=== PATIENT | male | born 1955 | race Caucasian/White ===

== ENCOUNTER 2017-12-21 18:43 | Inpatient (IN) | payer MEDICARE ==
[2017-12-21 19:17] LABS: #Eosinphils 0.1 thou/uL (0.0-0.7); #Lymphocytes 0.5 thou/uL (1.20-3.40); #Monocytes 0.6 thou/uL (0.11-0.59); #Neutrophils 6.9 thou/uL (1.40-6.50); %Eosinophils 0.9 % (0.0-10.0); %Lymphocytes 5.7 % (21.0-51.0); %Monocytes 7.4 % (0.0-10.0); Hemoglobin 10.2 g/dL (14.0-18.0); Mean Corpuscular HGB CONC 32.5 g/dL (32.0-36.0); Mean Corpuscular Hemoglobin 31.9 pg (27.0-31.0); Mean Corpuscular Volume 98.1 fl (80.0-94.0); Mean Platelet Volume 5.9 fL (7.4-10.4); Platelet Count 244 thou/uL (130-400); RBC Distribution Width 12.7 % (11.5-14.5); Red Blood Cell (RBC) Count 3.21 mill/uL (4.70-6.10)
[2017-12-21 19:43] LABS: ALT (SGPT) 9 U/L (8-55); AST (SGOT) 12 U/L (5-34); Albumin 3.8 g/dL (3.4-4.8); Alkaline Phosphatase 147 U/L (40-150); Anion Gap 13 mmol/L (10-20); BUN (Urea Nitrogen) 17 mg/dL (8.4-25.7); Bilirubin, Total 0.7 mg/dL (0.2-1.2); Calc. Creatinine Clearance 0 mL/min (70-130); Calcium 10.2 mg/dL (7.8-10.44); Carbon Dioxide 27 mmol/L (23-31); Chloride 101 mmol/L (98-107); Estimated GFR-MDRD 16; Globulin 3.9 g/dL (2.4-3.5); Glucose 88 mg/dL (80-115); Potassium 3.5 mmol/L (3.5-5.1); Protein, Total 7.7 g/dL (5.8-8.1); Sodium 137 mmol/L (136-145)
--- NOTE | 2017-12-21 19:48 | RAD ---
PORTABLE CHEST: 12/21/17 HISTORY: Fever. No comparison. There are patchy areas of confluent infiltrate throughout the left lung and there is opacification of the left lung base obscuring the hemidiaphragm. There is opacification of the left apex. The right lung appears aerated and clear. No vascular conges tion or effusion on the right. Heart is enlarged with postop sternotomy change. Radiopaque stent material overlies the right innomin ate vein and right subclavian. There is also stent material in the proximal right upper extremity in the region of the axillary vein. IMPRESSION: Patchy areas of alveolar infiltrate throughout the left lung with opacification of the left lung base and opacification of the left apex. There are no comparison studies available. POS: KEILY
[2017-12-21] MEDS ORDERED: Acetaminophen 325 MG TAB PO PRN (20:33)
--- NOTE | 2017-12-21 20:42 | PDOC.FPRHP ---
- History of Present Illness Chief Complaint: increased productive cough, fever History of Present Illness: Sravan Varela is a 62 year old M with a PMH of ESRD on MWF dialysis, chronic L pleural effusion currently being worked up at OP, Atrial fibrillation s/p ablation-now resolved, CAD s/p FL and CABG in 2016 (last echo in 2017-EF of 40- 45%), HTN and HLD. He presented to the ED today due to acute onset of fever and chills starting today and an increased productive cough for the last few days. He actually had a colonoscopy performed this morning by Dr. Pena, which was normal, no complications. After the colonoscopy, he went to routine dialysis. Patient states that towards the end of dialysis, he started having some chills. He told the dialysis provider, at that time, he was afebrile. He was instructed to go to ED if he develops a fever or worsening symptoms. He went to his daughter's house after dialysis and he did in fact have continue chills, developed a fever, and progressive weakness/fatigue. He denies any chest pain, palpitations, vision changes, headache, dyspnea, abdominal pain, GI bleeding, dysuria, increased urinary frequency. He has a recent history of left sided pleural effusion for the last couple weeks that Dr. Cobos, pt's sr. vendor management associate, is a aware. Outpatient thoracentesis was performed about a week ago by Dr. Clinton. Cytology results are pending. Dr. Cobos called and states that this is suspicion for malignancy as patient has had some recent unexplained weight loss. ED Course: In the ED, blood cultures were drawn and patient was started on IV vancomycin 1 g and Levaquin 750 mg. Also given 3 mL duoneb and 500 cc NS bolus. - Allergies/Adverse Reactions Allergies Allergy/AdvReac Type Severity Reaction Status Date / Time Penicillins Allergy Verified 12/21/17 20:45 - Home Medications Medication Instructions Recorded Confirmed Type Aspirin [Aspirin Chewable Tablet] 81 mg PO DAILY 12/21/17 12/21/17 History Atorvastatin Calcium 20 mg PO DAILY 12/21/17 12/21/17 History Cholecalciferol (Vitamin D3) 2,000 unit PO DAILY 12/21/17 12/21/17 History [D3-2000] Cinacalcet HCl [Sensipar] 30 mg PO DAILY 12/21/17 12/21/17 History Folic Acid/Multivit,Iron,Parker 1 tablet PO DAILY 12/21/17 12/21/17 History [Nutricap Caplet] Lisinopril 2.5 mg PO DAILY 12/21/17 12/21/17 History Metoprolol Succinate [Toprol XL] 50 mg PO DAILY 12/21/17 12/21/17 History [place]-3 Fatty Acids/Fish Oil [Fish 1 cap PO DAILY 12/21/17 12/21/17 History Oil 1,000 mg Capsule] Sevelamer Carbonate [Renvela] 3,200 mg PO TID-WM 12/21/17 12/21/17 History - History PMHx: 1) CAD s/p FL and CABG in 2016, 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 Cobos is sr. vendor management associate 3) A fib s/p ablation-now resolved, Dr. Cosme 4) HTN 5) HLD 6) Recent hx of left pleural effusion PSHx: 1) CABG X4 in 2015 2) Cardiac ablation FHx: DM, HTN, CAD in several family members Social: Patient endorses smokeless tobacco use (1 can every 3 days) Denies alcohol or drug use - Review of Systems General: reports: fever/chills, fatigue. denies: weight/appetite/sleep changes , night sweats Eyes: denies: eye pain, vision changes ENT: denies: nasal congestion, rhinorrhea Respiratory: reports: cough, shortness of breath, exercise intolerance. denies : congestion Cardiovascular: denies: chest pain, palpitation, edema, paroxysmal nocturnal dyspnea, orthopnea Gastrointestinal: reports: diarrhea (chronic). denies: nausea, vomiting, constipation, abdominal pain Genitourinary: denies: incontinence, dysuria, polyuria, discharge Skin: denies: rashes, lesions, jaundice, itching, other Musculoskeletal: denies: pain, tenderness, stiffness, swelling, arthritis/ arthralgias Neurological: denies: numbness, syncope, seizure, weakness Psychological: denies: anxiety, depression - Vital signs BP: 133/68 HR: 103 RR: 24 Tmax: 103.1 Pox: 89% on RA Wt: 63 kg - Physical Exam Constitutional: NAD, awake, alert and oriented, well developed HEENT: normocephalic and atraumatic, PERRLA, EOMI, conjunctiva clear, no scleral icterus, grossly normal vision, TM's clear and intact, grossly normal hearing, normal nasal mucosa, MMM, oropharynx clear Neck: supple, FROM, trachea midline, no LAD, no JVD Chest: no-tender to palpation, no lesions Heart: RRR, normal S1/S2, pulses present, no edema -Heart: 2/6 systolic murmur Lungs: good air movement -Lungs: b/l L>R rales and expiratory wheezes Abdomen: soft, bowel sounds present, no masses/distention -Abdomen: mild suprapubic TTP, no guarding, rigidity, rebound Musculoskeletal: normal structure, normal tone, ROM grossly normal Neurological: no focal deficit, CN II-XII intact, normal sensation Skin: no rash/lesions, good turgor, capillary refill <2 seconds Heme/Lymphatic: no unusual bruising or bleeding, no purpura, no petechia Psychiatric: normal mood and affect, good judgment and insight, intact recent and remote memory FMR H&P: Results - Labs Result Diagrams: 12/21/17 19:10 12/21/17 19:10 Lab results: WBC 8.0 thou/uL (4.8-10.8) 12/21/17 19:10 Hgb 10.2 g/dL (14.0-18.0) L 12/21/17 19:10 Hct 31.4 % (42.0-52.0) L 12/21/17 19:10 MCV 98.1 fl (80.0-94.0) H 12/21/17 19:10 Plt Count 244 thou/uL (130-400) 12/21/17 19:10 Neutrophils % 86.0 % (42.0-75.0) H 12/21/17 19:10 Sodium 137 mmol/L (136-145) 12/21/17 19:10 Potassium 3.5 mmol/L (3.5-5.1) 12/21/17 19:10 Chloride 101 mmol/L (98-107) 12/21/17 19:10 Carbon Dioxide 27 mmol/L (23-31) 12/21/17 19:10 BUN 17 mg/dL (8.4-25.7) 12/21/17 19:10 Creatinine 3.81 mg/dL (0.6-1.3) H 12/21/17 19:10 Glucose 88 mg/dL (80-115) 12/21/17 19:10 Lactic Acid 0.9 mmol/L (0.5-2.2) 12/21/17 19:10 Calcium 10.2 mg/dL (7.8-10.44) 12/21/17 19:10 Total Bilirubin 0.7 mg/dL (0.2-1.2) 12/21/17 19:10 AST 12 U/L (5-34) 12/21/17 19:10 ALT 9 U/L (8-55) 12/21/17 19:10 Alkaline Phosphatase 147 U/L (40-150) 12/21/17 19:10 Serum Total Protein 7.7 g/dL (5.8-8.1) 12/21/17 19:10 Albumin 3.8 g/dL (3.4-4.8) 12/21/17 19:10 - EKG Interpretation EKG: NSR with RBBB, no ST changes - Radiology Interpretation Chest x-ray Status: image reviewed by me, report reviewed by me (left sides patchy infiltrates in left upper and lower lobe) FMR H&P: A/P - Problem List (1) Sepsis due to pneumonia Current Visit: Yes Status: Acute Code(s): J18.9 - PNEUMONIA, UNSPECIFIED ORGANISM; A41.9 - SEPSIS, UNSPECIFIED ORGANISM (2) Acute respiratory failure with hypoxia Current Visit: Yes Status: Acute Code(s): J96.01 - ACUTE RESPIRATORY FAILURE WITH HYPOXIA (3) Community acquired pneumonia Current Visit: Yes Status: Acute Code(s): J18.9 - PNEUMONIA, UNSPECIFIED ORGANISM (4) ESRD (end stage renal disease) on dialysis Current Visit: Yes Status: Chronic Code(s): N18.6 - END STAGE RENAL DISEASE ; Z99.2 - DEPENDENCE ON RENAL DIALYSIS (5) CAD (coronary artery disease) Current Visit: Yes Status: Chronic Code(s): I25.10 - ATHSCL HEART DISEASE OF [place] CORONARY ARTERY W/O ANG PCTRS (6) HTN (hypertension) Current Visit: Yes Status: Chronic Code(s): I10 - ESSENTIAL (PRIMARY) HYPERTENSION (7) HLD (hyperlipidemia) Current Visit: Yes Status: Chronic Code(s): E78.5 - HYPERLIPIDEMIA, UNSPECIFIED (8) Hx of atrial fibrillation, no current medication Current Visit: Yes Status: Resolved Code(s): Z86.79 - PERSONAL HISTORY OF OTHER DISEASES OF THE CIRCULATORY SYSTEM (9) Hx of pleural effusion Current Visit: Yes Status: Acute Code(s): Z87.09 - PERSONAL HISTORY OF OTHER DISEASES OF THE RESPIRATORY SYSTEM - Plan (1) Sepsis 2/2 Community Acquired Pneumonia - Admit to Tele for continuous cardiac monitoring - Initial presentation with fever 103.1 and increased productive cough with patchy left sided infiltrate on CXR - Fever started after dialysis this morning - Blood cultures drawn this morning - Continue Abx therapy with IV vancomycin with renal dosing and levaquin - Check procalcitonin, Ur Legionella/Strep Ag - Duonebs and supplemental O2 - Gentle IVFs, LR at 85 ml/hr - monitor vitals (2) Acute hypoxic respiratory failure - Sats of 89% on RA in ED - Started on supplemental O2, sats of 93-94% on 2L - Likely 2/2 #1 - management as above (3) CAP - As above (4) Hx of left sided pleural effusion - s/p thoracentesis about a week ago - cytology pending - Will request records from Dr. Clinton (5) ESRD on MWF HD - Dr. Franco Cobos consulted, appreciate recs - Continue HD - Monitor - Continue home medications - Renally dose medications (4) A fib s/p ablation-resolved - monitor on tele - continue home metoprolol (5) CAD s/p CABG over a year ago - EKG showed no ST changes - Denies any active or recent chest pain - Continue asa and statin (6) HTN - Monitor on Tele - BP stable in ED - Continue home metoprolol and lisinopril (7) HLD - Continue home statin VTE PPx: Lovenox, SCDs Diet: HH, Renal, Consult Aviation Safety Equipment Technician Activity: Ad kat, fall precautions CODE STATUS: FULL CODE FMR H&P: Upper Level - Pertinent history 62 yo CM with pmhx of ESRD on MWF dialysis (last HD today), CAD s/p FL and CABG in 2016, HFrEF (2017 echo- EF 40-45%), Afib s/p ablation, HTN, HLD and a chronic Lt pleural effusion currently being worked up as an outpt presents with acute onset of fever and chills after HD today. He also endorses a productive cough and increased SOB and weakness for the last few days. For his pleural effusion work up, Dr. Clinton performed dx thoracentesis last week and cytology is pending. There is suspicion of malignancy per pts sr. vendor management associate, Dr. Cobos, who has been consulted for pts HD mgmt. Additionally, pt had EGD & colonoscopy this morning by Dr. Linares, which was normal, and and was without complications. In ED, pt was noted to be febrile to 103.1 and hypoxic to 89% on RA. hx sig for chewing tobacco, non smoker. Specifically denies any cp, palpitations , abd pain, n/v/d. - Pertinent findings Significant Laboratory Tests 12/21/17 12/21/17 12/21/17 19:10 19:10 19:10 WBC 8.0 Hgb 10.2 L Hct 31.4 L Plt Count 244 Neutrophils % 86.0 H Creatinine 3.81 H Estimated GFR (MDRD) 16 Lactic Acid 0.9 PE- Gen- well appearing, NAD male, oriented x 2 CV- RRR, 4/6 MADDY Lungs- crackles in left lung base, decreased air movement in left lung apex Abd- soft, nontender Ext- no edema or cyanosis, +skin tenting - Plan Date/Time: 12/21/172036 62yo CM with CAD, ESRD, CHF, HTN, HLD, Afib s/p ablation, and chronic Lt pleural effusion-- 1) Sepsis secondary to presumed CAP- febrile, tachycardic, hypoxic on admission with a left shift on differential. concern for immunosuppressed state given ESRD and possible malignancy. continue Vanc + Levaquin for broad-spectrum abx coverage (PCN allergy) and pending BCx. Give additional 250ml NS for completion of 30ml/kg fluid repletion for sepsis. Check procalcitonin. If immunosuppressed , consider fungal cause vs. TB given location and h/o recent wt loss. Check quant gold. 2) Lt pleural effusion, chronic- pending cytology and work-up. check quant gold , request records from [facility] regarding diagnostic thoracentesis results. 3) new systolic murmur- not previously documented. check echo. if no clear pneumonia based on the above, consider endocarditis as possible source of fever- - especially in light of h/o afib, now off coumadin. 4) ESRD on HD- continue HD mwf per Dr. Cobos, who has been consulted on the case. 5) CAD s/p 4v CABG- med rec for optimal medical mgmt 6) Afib s/p ablation- appears to have been sinus tach upon arrival. previously on coumadin- has since stopped. monitor on tele and complete fluid repletion for sepsis. 7) HFrEF (40-45%)- last echo 18 mo prior, repeat during this hospitalization, especially in light of possible new onset murmur 8) HTN- home rx 9) HLD- home statin 10) chewing tobacco abuse- school counselor on cessation I, [Chastity Nguyen DO (PGY-3)], have evaluated this patient and agree with findings/plan as outlined by agribusiness internship resident. Pertinent changes/additions are listed here.
[2017-12-21] MEDS ORDERED: Lactated Ringer's 1,000 ML IV SCH (22:00)
[2017-12-21] MEDS ORDERED: Sodium Chloride 0.9% 250 ML IV SCH (22:15)
[2017-12-21] MEDS ORDERED: Vancomycin HCl 1 GM in Premix Bag 1 BAG IVPB PRN (22:32)
[2017-12-21] MEDS ORDERED: Vancomycin HCl 750 MG in Sodium Chloride 0.9% 250 ML 250 ML IVPB PRN (22:32)
[2017-12-21] MEDS ORDERED: Vancomycin HCl 500 MG in Sodium Chloride 0.9% 100 ML IVPB PRN (22:33)
[2017-12-21] MEDS ORDERED: Vancomycin HCl 250 MG in Sodium Chloride 0.9% 100 ML IVPB PRN (22:34)
[2017-12-21] MEDS ORDERED: HOLD VANCOMYCIN FOR LEVEL >20 FS SCH (22:45)
[2017-12-21] MEDS ORDERED: Sodium Chloride 0.9% 1,000 ML IV SCH (23:00)
[2017-12-21 23:26] LABS: INR-International Normal Ratio 1.3; PTT 40.1 SEC (22.9-36.1)
[2017-12-21] MEDS ORDERED: Tuberculin PPD 0.1 ML VIAL I-DERMAL SCH (23:30)
[2017-12-22 00:30] VITALS: BMI 21.5
[2017-12-22 05:18] LABS: #Eosinphils 0.2 thou/uL (0.0-0.7); #Lymphocytes 0.5 thou/uL (1.20-3.40); #Monocytes 0.6 thou/uL (0.11-0.59); #Neutrophils 4.5 thou/uL (1.40-6.50); %Basophils 0.5 % (0.0-1.0); %Eosinophils 2.8 % (0.0-10.0); %Lymphocytes 8.1 % (21.0-51.0); %Monocytes 11.1 % (0.0-10.0); %Neutrophils 77.5 % (42.0-75.0); Hemoglobin 9.3 g/dL (14.0-18.0); Mean Corpuscular HGB CONC 31.8 g/dL (32.0-36.0); Mean Corpuscular Hemoglobin 31.9 pg (27.0-31.0); Mean Platelet Volume 6.1 fL (7.4-10.4); Platelet Count 197 thou/uL (130-400); RBC Distribution Width 12.8 % (11.5-14.5); Red Blood Cell (RBC) Count 2.91 mill/uL (4.70-6.10); White Blood Cell (WBC) Count 5.8 thou/uL (4.8-10.8)
[2017-12-22 05:29] LABS: Anion Gap 12 mmol/L (10-20); BUN (Urea Nitrogen) 23 mg/dL (8.4-25.7); Calc. Creatinine Clearance 16 mL/min (70-130); Calcium 9.6 mg/dL (7.8-10.44); Carbon Dioxide 27 mmol/L (23-31); Chloride 104 mmol/L (98-107); Estimated GFR-MDRD 14; Glucose 72 mg/dL (80-115); Potassium 3.6 mmol/L (3.5-5.1); Sodium 139 mmol/L (136-145)
--- NOTE | 2017-12-22 06:45 | PDOC.FM ---
- Subjective Subjective: No complaints this am. Not requiring O2 this morning. VSS, afebrile. NSR this morning with few PVCs. - Objective MAR Reviewed: Yes Vital Signs & Weight: Vital Signs (12 hours) Temp Pulse Resp BP Pulse Ox 12/22/17 04:51 96.9 F L 67 20 100/76 100 12/22/17 00:30 98.5 F 68 16 103/56 L 99 12/21/17 21:30 99.8 F H 88 20 98 12/21/17 21:25 99.8 F H 88 20 112/59 L 98 Weight Weight 65.68 kg I&O: 12/20/17 12/21/17 12/22/17 06:59 06:59 06:59 Intake Total 610 Balance 610 Result Diagrams: 12/22/17 04:18 12/22/17 04:18 Radiology Reviewed by me: Yes <Tatiana Bishop - Last Filed: 12/22/17 07:51> - Objective Vital Signs & Weight: Vital Signs (12 hours) Temp Pulse Resp BP BP Pulse Ox 12/23/17 09:00 68 131/65 12/23/17 08:54 97.8 F 68 18 131/65 95 12/23/17 04:14 97.9 F 74 20 149/71 H 98 12/23/17 02:00 95 12/22/17 23:51 96.6 F L 74 20 136/70 96 Weight Weight 144 lb 12.8 oz I&O: 12/22/17 12/23/17 12/24/17 06:59 06:59 06:59 Intake Total 610 720 Output Total 30 Balance 610 690 Result Diagrams: 12/23/17 04:21 12/23/17 04:21 <Umair Payne - Last Filed: 12/23/17 09:30> Phys Exam - Physical Examination Constitutional: NAD HEENT: PERRLA, moist MMs Neck: no JVD Respiratory: no wheezing crackles left sided <Tatiana Bishop - Last Filed: 12/22/17 07:51> Dx/Plan (1) Sepsis due to pneumonia Code(s): J18.9 - PNEUMONIA, UNSPECIFIED ORGANISM; A41.9 - SEPSIS, UNSPECIFIED ORGANISM Status: Acute (2) Acute respiratory failure with hypoxia Code(s): J96.01 - ACUTE RESPIRATORY FAILURE WITH HYPOXIA Status: Resolved (3) Community acquired pneumonia Code(s): J18.9 - PNEUMONIA, UNSPECIFIED ORGANISM Status: Acute (4) Hx of pleural effusion Code(s): Z87.09 - PERSONAL HISTORY OF OTHER DISEASES OF THE RESPIRATORY SYSTEM Status: Chronic (5) CAD (coronary artery disease) Code(s): I25.10 - ATHSCL HEART DISEASE OF [place] CORONARY ARTERY W/O ANG PCTRS Status: Chronic (6) ESRD (end stage renal disease) on dialysis Code(s): N18.6 - END STAGE RENAL DISEASE; Z99.2 - DEPENDENCE ON RENAL DIALYSIS Status: Chronic (7) HLD (hyperlipidemia) Code(s): E78.5 - HYPERLIPIDEMIA, UNSPECIFIED Status: Chronic (8) HTN (hypertension) Code(s): I10 - ESSENTIAL (PRIMARY) HYPERTENSION Status: Chronic (9) Hx of atrial fibrillation, no current medication Code(s): Z86.79 - PERSONAL HISTORY OF OTHER DISEASES OF THE CIRCULATORY SYSTEM Status: Resolved - Plan Plan: (1) Sepsis 2/2 Community Acquired Pneumonia - Admit to Tele for continuous cardiac monitoring - Initial presentation with fever 103.1 and increased productive cough with patchy left sided infiltrate on CXR - Fever started after dialysis - Blood cultures drawn and are pending - Continue Abx therapy with IV vancomycin with renal dosing and levaquin - normal procalcitonin, Ur Legionella/Strep Ag pending - Duonebs and supplemental O2 - Gentle IVFs, LR at 85 ml/hr - monitor vitals (2) Acute hypoxic respiratory failure, now resolved - Sats of 89% on RA in ED - Started on supplemental O2, sats of 93-94% on 2L - Likely 2/2 #1 - management as above (3) CAP - As above (4) Hx of left sided pleural effusion - s/p thoracentesis about a week ago - cytology pending - Will request records from Dr. Clinton (5) ESRD on MWF HD - Dr. Franco Cobos consulted, appreciate recs - Continue HD - Monitor - Continue home medications - Renally dose medications (4) A fib s/p ablation-resolved - monitor on tele - continue home metoprolol (5) CAD s/p CABG over a year ago - EKG showed no ST changes - Denies any active or recent chest pain - Continue asa and statin (6) HTN - Monitor on Tele - BP stable in ED - Continue home metoprolol and lisinopril (7) HLD - Continue home statin VTE PPx: Lovenox, SCDs Diet: HH, Renal, Consult Drug Room Clerk Activity: Ad kat, fall precautions CODE STATUS: FULL CODE <Tatiana Bishop - Last Filed: 12/22/17 07:51> Attending Addendum - Attending Addendum Date/Time: 12/23/17 0930 I personally evaluated the patient and discussed the management with Dr. Dubon. I agree with the History, Examination, Assessment and Plan documented above with any addition or exceptions noted below. continue iv antibiotics. <Umair Payne - Last Filed: 12/23/17 09:30>
[2017-12-22 08:01] LABS: Bilirubin Small (Negative); Blood, Urine Negative (Negative); Clarity CLEAR (Clear); Glucose, Urine (Dipstick) Negative (Negative); Leukocyte Negative (Negative); Nitrite Negative (Negative); Protein, Urine (Dipstick) 300 mg/dL (Neg-Trace); Specific Gravity, Urine 1.011 (1.002-1.036); Urobilinogen 0.2 mg/dL (0.2-1.0)
[2017-12-22 08:04] LABS: Bacteria/HPF None Seen HPF (None Seen); Hyaline Casts/LPF 0-3 HYALINE CAST LPF (0-3 Hyaline); Squamous Epithelial 0-3 HPF (0-3); WBC/HPF 0-3 HPF (0-3)
[2017-12-22 08:05] LABS: Oval Fat Bodies/HPF None Seen HPF (None Seen); Renal Epithelial None Seen HPF (0-3); Sperm/HPF None Seen HPF (None Seen); Transitional Epithelial NONE SEEN HPF (0-3); Trichomonas/HPF None Seen HPF (None Seen); Yeast-All Forms None Seen HPF (None Seen)
[2017-12-22] MEDS ORDERED: Enoxaparin Sodium 30 MG/0.3 ML SYRINGE SC SCH ×2 (09:00)
[2017-12-22] MEDS: Lisinopril 2.5 MG TAB PO SCH (09:16)
[2017-12-22] MEDS: Sevelamer Carbonate 800 MG TAB PO SCH ×3 (09:16→17:54)
[2017-12-22] MEDS: Cinacalcet HCl 30 MG TAB PO SCH (09:16)
[2017-12-22] MEDS: Multivitamin W/ Minerals 1 TAB PO SCH (09:16)
[2017-12-22] MEDS: Atorvastatin Calcium 20 MG TAB PO SCH (09:17)
[2017-12-22] MEDS: Guaifenesin DM 100-10/5 ML UDCUP PO PRN ×3 (10:59→23:40)
[2017-12-23 05:38] LABS: #Eosinphils 0.3 thou/uL (0.0-0.7); #Lymphocytes 0.6 thou/uL (1.20-3.40); #Monocytes 0.6 thou/uL (0.11-0.59); #Neutrophils 3.8 thou/uL (1.40-6.50); %Basophils 0.4 % (0.0-1.0); %Lymphocytes 11.5 % (21.0-51.0); %Monocytes 11.4 % (0.0-10.0); %Neutrophils 70.7 % (42.0-75.0); Mean Corpuscular HGB CONC 31.1 g/dL (32.0-36.0); Mean Corpuscular Volume 99.7 fl (80.0-94.0); Mean Platelet Volume 6.2 fL (7.4-10.4); Platelet Count 230 thou/uL (130-400); RBC Distribution Width 12.8 % (11.5-14.5); Red Blood Cell (RBC) Count 3.24 mill/uL (4.70-6.10); White Blood Cell (WBC) Count 5.4 thou/uL (4.8-10.8)
[2017-12-23 05:43] LABS: Anion Gap 13 mmol/L (10-20); BUN (Urea Nitrogen) 34 mg/dL (8.4-25.7); Calc. Creatinine Clearance 12 mL/min (70-130); Calcium 10.6 mg/dL (7.8-10.44); Carbon Dioxide 25 mmol/L (23-31); Chloride 104 mmol/L (98-107); Estimated GFR-MDRD 10; Glucose 79 mg/dL (80-115); Potassium 3.8 mmol/L (3.5-5.1); Sodium 138 mmol/L (136-145)
--- NOTE | 2017-12-23 06:07 | PDOC.FM ---
- Subjective Subjective: Pt denies any complaints but per telemetry he did have a 4 beat run of VT and episodes where his HR dropped to the 40s or 50s while sleeping. He is asymptomatic this morning. - Objective MAR Reviewed: Yes Vital Signs & Weight: Vital Signs (12 hours) Temp Pulse Resp BP Pulse Ox 12/23/17 04:14 97.9 F 74 20 149/71 H 98 12/23/17 02:00 95 12/22/17 23:51 96.6 F L 74 20 136/70 96 12/22/17 19:42 97.8 F 70 20 143/65 H 95 12/22/17 19:35 97.8 F 70 20 95 Weight Weight 65.68 kg I&O: 12/21/17 12/22/17 12/23/17 06:59 06:59 06:59 Intake Total 610 720 Output Total 30 Balance 610 690 Result Diagrams: 12/23/17 04:21 12/23/17 04:21 Phys Exam - Physical Examination Constitutional: NAD HEENT: PERRLA, moist MMs Respiratory: no wheezing, no rales, clear to auscultation bilateral Cardiovascular: RRR systolice ejection murmur Gastrointestinal: soft, non-tender Musculoskeletal: no edema, pulses present Neurological: non-focal Psychiatric: normal affect, A&O x 3 Skin: no rash Dx/Plan (1) Sepsis due to pneumonia Code(s): J18.9 - PNEUMONIA, UNSPECIFIED ORGANISM; A41.9 - SEPSIS, UNSPECIFIED ORGANISM Status: Acute (2) Acute respiratory failure with hypoxia Code(s): J96.01 - ACUTE RESPIRATORY FAILURE WITH HYPOXIA Status: Resolved (3) Community acquired pneumonia Code(s): J18.9 - PNEUMONIA, UNSPECIFIED ORGANISM Status: Acute (4) Hx of pleural effusion Code(s): Z87.09 - PERSONAL HISTORY OF OTHER DISEASES OF THE RESPIRATORY SYSTEM Status: Chronic (5) CAD (coronary artery disease) Code(s): I25.10 - ATHSCL HEART DISEASE OF [place] CORONARY ARTERY W/O ANG PCTRS Status: Chronic (6) ESRD (end stage renal disease) on dialysis Code(s): N18.6 - END STAGE RENAL DISEASE; Z99.2 - DEPENDENCE ON RENAL DIALYSIS Status: Chronic (7) HLD (hyperlipidemia) Code(s): E78.5 - HYPERLIPIDEMIA, UNSPECIFIED Status: Chronic (8) HTN (hypertension) Code(s): I10 - ESSENTIAL (PRIMARY) HYPERTENSION Status: Chronic (9) Hx of atrial fibrillation, no current medication Code(s): Z86.79 - PERSONAL HISTORY OF OTHER DISEASES OF THE CIRCULATORY SYSTEM Status: Resolved (10) Nonsustained supraventricular tachycardia Code(s): I47.1 - SUPRAVENTRICULAR TACHYCARDIA Status: Acute (11) Ventricular tachycardia, non-sustained Code(s): I47.2 - VENTRICULAR TACHYCARDIA Status: Acute (12) Bradycardia Code(s): R00.1 - BRADYCARDIA, UNSPECIFIED Status: Acute - Plan Plan: Sepsis 2/2 Community Acquired Pneumonia vs endocarditis - Blood cultures drawn and show NGTD - Continue Abx therapy with levaquin - echo did not show any vegetations, will plan to dc vanc today - normal procalcitonin, Ur Legionella/Strep Ag pending - Duonebs and supplemental O2 - Gentle IVFs, LR at 85 ml/hr - monitor vitals Acute hypoxic respiratory failure, now resolved - Sats of 89% on RA in ED, now upper 90s on RA - Likely 2/2 #1 CAP - see above Nonsustained VT- -4 beats overnight while asleep, resolved -continue to monitor Nonsustained SVT -several beats yesterday morning, nonstained, resolved Bradycardia -40s-50s overnight -Currently NSR in the 60-70s -Continue to monitor Hx of left sided pleural effusion - s/p thoracentesis about a week ago - cytology pending - records from Dr. Clinton pending ESRD on MWF HD - Dr. Franco Cobos consulted, appreciate recs - Continue HD - Continue home medications A fib s/p ablation-resolved - monitor on tele - continue home metoprolol CAD s/p CABG over a year ago - Continue asa and statin HTN - Monitor on Tele - BP stable in ED - Continue home metoprolol and lisinopril HLD - Continue home statin VTE PPx: Lovenox, SCDs Diet: HH, Renal, Consult Supervisor Costuming Activity: Ad kat, fall precautions
[2017-12-23 07:52] LABS: Folate (Folic Acid) 13.4 ng/mL (7.0-31.4)
[2017-12-23 08:28] LABS: Magnesium 2.2 mg/dL (1.6-2.6); Phosphorus 2.2 mg/dL (2.3-4.7)
[2017-12-23] MEDS ORDERED: Sodium Chloride 0.9% 10 ML ONE (08:28)
[2017-12-23] MEDS: Lisinopril 2.5 MG TAB PO SCH (09:00)
[2017-12-23] MEDS: Fish Oil 1,000 MG CAP PO SCH (09:00)
[2017-12-23] MEDS: Multivitamin W/ Minerals 1 TAB PO SCH (09:00)
[2017-12-23] MEDS: Atorvastatin Calcium 20 MG TAB PO SCH (09:00)
[2017-12-23] MEDS: Sevelamer Carbonate 800 MG TAB PO SCH ×3 (09:00→17:13)
[2017-12-23] MEDS: Cinacalcet HCl 30 MG TAB PO SCH (09:00)
[2017-12-23] MEDS: Guaifenesin DM 100-10/5 ML UDCUP PO PRN (12:36)
[2017-12-23] MEDS ORDERED: READ PPD TEST SITE PO SCH (23:30)
[2017-12-24 05:15] LABS: #Basophils 0.1 thou/uL (0.0-0.2); #Eosinphils 0.3 thou/uL (0.0-0.7); #Lymphocytes 0.4 thou/uL (1.20-3.40); #Monocytes 0.5 thou/uL (0.11-0.59); #Neutrophils 4.5 thou/uL (1.40-6.50); %Eosinophils 4.4 % (0.0-10.0); %Lymphocytes 7.6 % (21.0-51.0); %Monocytes 9.1 % (0.0-10.0); %Neutrophils 76.9 % (42.0-75.0); Hemoglobin 9.5 g/dL (14.0-18.0); Mean Corpuscular HGB CONC 31.9 g/dL (32.0-36.0); Mean Platelet Volume 6.2 fL (7.4-10.4); Platelet Count 227 thou/uL (130-400); RBC Distribution Width 12.7 % (11.5-14.5); Red Blood Cell (RBC) Count 2.96 mill/uL (4.70-6.10); White Blood Cell (WBC) Count 5.8 thou/uL (4.8-10.8)
[2017-12-24 05:26] LABS: Anion Gap 12 mmol/L (10-20); BUN (Urea Nitrogen) 41 mg/dL (8.4-25.7); Calc. Creatinine Clearance 10 mL/min (70-130); Calcium 10.2 mg/dL (7.8-10.44); Carbon Dioxide 23 mmol/L (23-31); Chloride 106 mmol/L (98-107); Estimated GFR-MDRD 8; Glucose 80 mg/dL (80-115); Potassium 3.8 mmol/L (3.5-5.1); Sodium 137 mmol/L (136-145)
[2017-12-24] MEDS: Sevelamer Carbonate 800 MG TAB PO SCH ×3 (08:16→16:57)
[2017-12-24] MEDS: Atorvastatin Calcium 20 MG TAB PO SCH (08:17)
[2017-12-24] MEDS: Lisinopril 2.5 MG TAB PO SCH (08:17)
[2017-12-24] MEDS: Fish Oil 1,000 MG CAP PO SCH (08:17)
[2017-12-24] MEDS: Multivitamin W/ Minerals 1 TAB PO SCH (08:18)
[2017-12-24] MEDS: Cinacalcet HCl 30 MG TAB PO SCH (08:18)
[2017-12-24] MEDS: Guaifenesin DM 100-10/5 ML UDCUP PO PRN ×2 (08:18→16:57)
--- NOTE | 2017-12-24 09:05 | PDOC.FM ---
- Subjective Subjective: No acute events overnight. SR on tele in the 70s. No complaints this morning. - Objective MAR Reviewed: Yes Vital Signs & Weight: Vital Signs (12 hours) Temp Pulse Resp BP Pulse Ox 12/24/17 08:17 67 12/24/17 08:15 97.3 F L 68 20 119/58 L 95 12/24/17 05:42 96 12/24/17 04:00 96.2 F L 67 18 126/58 L 96 12/24/17 00:00 96.1 F L 61 16 126/59 L 99 Weight Weight 65.272 kg I&O: 12/23/17 12/24/17 12/25/17 06:59 06:59 06:59 Intake Total 720 1300 Output Total 30 0 Balance 690 1300 Result Diagrams: 12/24/17 04:15 12/24/17 04:15 <Tatiana Bishop - Last Filed: 12/24/17 09:06> - Objective Vital Signs & Weight: Vital Signs (12 hours) Temp Pulse Pulse Pulse Resp BP BP 12/24/17 16:58 52 L 67 128/60 126/79 12/24/17 15:40 98.3 F 61 16 12/24/17 14:10 98.0 F 62 22 H 12/24/17 08:17 67 12/24/17 08:15 97.3 F L 68 20 BP Pulse Ox 12/24/17 16:58 12/24/17 15:40 110/55 L 97 12/24/17 14:10 130/62 97 12/24/17 08:17 12/24/17 08:15 119/58 L 95 Weight Weight 65.272 kg I&O: 12/23/17 12/24/17 12/25/17 06:59 06:59 06:59 Intake Total 720 1300 840 Output Total 30 0 2300 Balance 690 1300 -1460 Result Diagrams: 12/24/17 04:15 12/24/17 04:15 <Sofi King - Last Filed: 12/24/17 19:19> Phys Exam - Physical Examination Constitutional: NAD HEENT: PERRLA, moist MMs Respiratory: no wheezing, no rales, clear to auscultation bilateral Cardiovascular: RRR, no significant murmur Gastrointestinal: soft, non-tender, no distention Musculoskeletal: no edema Neurological: non-focal Psychiatric: normal affect, A&O x 3 Skin: no rash, normal turgor <Tatiana Bishop - Last Filed: 12/24/17 09:06> Dx/Plan (1) Sepsis due to pneumonia Code(s): J18.9 - PNEUMONIA, UNSPECIFIED ORGANISM; A41.9 - SEPSIS, UNSPECIFIED ORGANISM Status: Acute (2) Acute respiratory failure with hypoxia Code(s): J96.01 - ACUTE RESPIRATORY FAILURE WITH HYPOXIA Status: Resolved (3) Community acquired pneumonia Code(s): J18.9 - PNEUMONIA, UNSPECIFIED ORGANISM Status: Acute (4) Hx of pleural effusion Code(s): Z87.09 - PERSONAL HISTORY OF OTHER DISEASES OF THE RESPIRATORY SYSTEM Status: Chronic (5) CAD (coronary artery disease) Code(s): I25.10 - ATHSCL HEART DISEASE OF [place] CORONARY ARTERY W/O ANG PCTRS Status: Chronic (6) ESRD (end stage renal disease) on dialysis Code(s): N18.6 - END STAGE RENAL DISEASE; Z99.2 - DEPENDENCE ON RENAL DIALYSIS Status: Chronic (7) HLD (hyperlipidemia) Code(s): E78.5 - HYPERLIPIDEMIA, UNSPECIFIED Status: Chronic (8) HTN (hypertension) Code(s): I10 - ESSENTIAL (PRIMARY) HYPERTENSION Status: Chronic (9) Hx of atrial fibrillation, no current medication Code(s): Z86.79 - PERSONAL HISTORY OF OTHER DISEASES OF THE CIRCULATORY SYSTEM Status: Resolved (10) Nonsustained supraventricular tachycardia Code(s): I47.1 - SUPRAVENTRICULAR TACHYCARDIA Status: Acute (11) Ventricular tachycardia, non-sustained Code(s): I47.2 - VENTRICULAR TACHYCARDIA Status: Acute (12) Bradycardia Code(s): R00.1 - BRADYCARDIA, UNSPECIFIED Status: Acute - Plan Plan: Sepsis 2/2 Community Acquired Pneumonia vs endocarditis - Blood cultures drawn and show NGTD - Continue Abx therapy with levaquin - echo did not show any vegetations - normal procalcitonin, Ur Legionella/Strep Ag pending - Duonebs and supplemental O2 - Gentle IVFs, LR at 85 ml/hr - monitor vitals Acute hypoxic respiratory failure, now resolved - Sats of 89% on RA in ED, now upper 90s on RA - Likely 2/2 #1 CAP - see above Nonsustained VT, resolved- -4 beats while asleep 12/23, resolved -continue to monitor Nonsustained SVT, resolved -several beats yesterday morning 2, nonstained, resolved Bradycardia -40s-50s overnight /3 -Currently NSR in the 60-70s -Continue to monitor Hx of left sided pleural effusion - s/p thoracentesis about a week ago - cytology pending - records from Dr. Clinton pending ESRD on MWF HD - Dr. Franco Cobos consulted, appreciate recs - Continue HD MWF - Continue home medications A fib s/p ablation-resolved - monitor on tele - continue home metoprolol CAD s/p CABG over a year ago - Continue asa and statin HTN - Monitor on Tele - BP stable in ED - Continue home metoprolol and lisinopril HLD - Continue home statin VTE PPx: Lovenox, SCDs Diet: HH, Renal, Consult Lien Searcher Activity: Ad kat, fall precautions Dispo: will have patient seen by PT/OT/CM for recommendations on discharge. <Tatiana Bishop - Last Filed: 12/24/17 09:06> Attending Addendum - Attending Addendum Date/Time: 12/24/171917 I personally evaluated the patient and discussed the management with Dr. Bishop. I agree with the History, Examination, Assessment and Plan documented above with any addition or exceptions noted below. The patient has had bradycardia and nonsustained vtach at different times during the hospitalization. Will consult cardiology for further evaluation. Pt will have dialysis today. Waiting on cultures and final tb results. <Sofi King - Last Filed: 12/24/17 19:19>
--- NOTE | 2017-12-24 11:33 | PQF ---
DATE: 12-24-17 ATTN: DR. NICOL ACUÑA Please exercise your independent, professional judgment in responding to the clarification form. Clinical indicators are provided on the bottom of this form for your review Please check appropriate box(s): HEART FAILURE: A. TYPE: [ X ] Systolic / HFrEF [X ] Diastolic / HFpEF [ ] Combined Systolic / Diastolic B. ACUITY [ ] Acute [ ] Acute on Chronic [ X] Chronic [ ] Other diagnosis [ ] Unable to determine In addition, please specify: Present on Admission (POA): [ ] Yes [ ] No [ ] Unable to determine For continuity of documentation, please document condition throughout progress notes and discharge summary. Thank You. CLINICAL INDICATORS - SIGNS / SYMPTOMS / LABS H&P: 62 YO CM WITH CAD, ESRD, CHF, HTN, HLD, A FIB S/P ABLATION AND CHRONIC LT PLEURAL EFFUSION H&P: HFrEF (40-45%)-LAST ECHO 18 MO PRIOR, REPEAT DURING HOSPITALIZATION, ESPECIALLY IN LIGHT OF POSSIBLE NEW ONSET MURMUR BNP: 12-21-17: 3337.5 RISKS: H&P: 62 YO CM WITH CAD, ESRD, CHF, HTN, HLD, A FIB S/P ABLATION AND CHRONIC LT PLEURAL EFFUSION TREATMENTS: (MAR) METOPROLOL O2 2L USE TELEMETRY MONITORING (This form is maintained as a part of the permanent medical record) 2014 [employer]. All Rights Reserved [email or web address] Office: [phone] [facility]
[2017-12-24 13:54] LABS: Legionella Urinary Ag Negative (Negative); Strep pneumo Urine Ag NEGATIVE (NEGATIVE)
--- NOTE | 2017-12-24 15:45 | CON ---
DATE OF CONSULTATION: 12/24/2017 REASON FOR CONSULTATION: Nonsustained VT, fever chills PRIMARY DRUM DYEING MACHINE OPERATOR: Zoya Chun M.D. HISTORY OF PRESENT ILLNESS: Avery is a very pleasant 62-year-old gentleman with past medical history of end-stage renal disease in addition to CAD status post bypass surgery x2 in 2016 and in addition atrial fibrillation who recently presented with malaise, fatigue in addition to leg weakness. Pt recently underwent a colonoscopy and shortly thereafter, while on dialysis, developed F/ C. No chest pain or pressure noted. No shortness of breath or associated symptoms. He had an episode of 9 beats of nonsustained VT while asleep. His LVEF on recent echo was estimated at 50%-55%. He did have moderate to severe tricuspid regurgitation. He denies syncope, presyncope or other associated symptoms. Cardiac history, cath dated 02/14/2016, previous stent placement to the right coronary artery with no significant disease. There is 90% mid PDA disease, 75%- 90% stenosis of the proximal portion of the circumflex artery in addition to 90 % stenosis of the mid LAD and 90% stenosis of diagonal branch. PAST MEDICAL HISTORY: Mild congestive heart failure, hypertension, mitral regurgitation, diabetes mellitus, and end-stage renal disease. PAST SURGICAL HISTORY: CABG, dialysis shunt placement and left knee surgery. ALLERGIES: PENICILLIN. HOME MEDICATIONS: Include atorvastatin, fish oil, vitamin D3, Renvela, Jantoven , vitamin, metoprolol, and lisinopril. REVIEW OF SYSTEMS: Ten point review of systems reviewed as above, otherwise negative. PHYSICAL EXAMINATION: GENERAL: Patient is a pleasant male who is in no acute distress. The patient appears his stated age. VITAL SIGNS: Blood pressure 119/58, pulse 68, temperature 97.3. NEUROLOGIC: The patient is alert and oriented times 3 with no focal neurologic deficits. HEENT: Sclerae without icterus. Mouth has moist mucous membranes with normal pallor. NECK: No JVD. Carotid upstroke brisk. No bruits bilaterally. LUNGS: Clear to auscultation with unlabored respirations. BACK: No scoliosis or kyphosis. CARDIAC: Regular rate and rhythm with normal S1 and S2. No S3 or S4 noted. No significant rubs, murmurs, thrills, or gallops noted throughout the precordium. PMI is not displaced. There is no parasternal heave. ABDOMEN: Soft, nontender, nondistended. No peritoneal signs present. No hepatosplenomegaly. No abnormal striae. EXTREMITIES: 2+ femoral and 2+ dorsalis pedis pulses. No cyanosis, clubbing, or edema. SKIN: No gross abnormalities. PERTINENT LABORATORY DATA: Hemoglobin 9.5, creatinine 6.74. BNP of 3337. IMPRESSION: 1. Nonsustained ventricular tachycardia. 2. Coronary artery disease. 3. Status post bypass surgery. 4. End-stage renal disease. 5. Pneumonia? RECOMMENDATIONS: At this point, the patient did have some nonsustained VT. He does have underlying coronary disease. He has no current symptoms suggesting angina. He has not had a recent stress study. We would recommend a noninvasive stress study to assess for any areas of ischemia. If felt to be low risk, I would continue medical therapy. This may also be atrial fibrillation with aberrancy. MTDD
--- NOTE | 2017-12-24 16:45 | PDOC.EVN ---
Event Note - Event Note Event Note: Based on recent events on tele overnight of nonsustained VT, nonsustained SVT, and bradycardia, and the recommendations of Dr. Hendricks, we will order a stress test for tomorrow am for Mr. Varela to further assess these abnormal nonstained rhythms.
[2017-12-25 05:10] LABS: #Eosinphils 0.3 thou/uL (0.0-0.7); #Lymphocytes 0.8 thou/uL (1.20-3.40); #Monocytes 0.5 thou/uL (0.11-0.59); #Neutrophils 3.8 thou/uL (1.40-6.50); %Basophils 0.5 % (0.0-1.0); %Lymphocytes 14.6 % (21.0-51.0); %Monocytes 8.7 % (0.0-10.0); %Neutrophils 71.2 % (42.0-75.0); Hemoglobin 10.5 g/dL (14.0-18.0); Mean Corpuscular HGB CONC 32.9 g/dL (32.0-36.0); Mean Corpuscular Hemoglobin 32.8 pg (27.0-31.0); Mean Corpuscular Volume 99.8 fl (80.0-94.0); Mean Platelet Volume 6.4 fL (7.4-10.4); Platelet Count 225 thou/uL (130-400); RBC Distribution Width 12.6 % (11.5-14.5); White Blood Cell (WBC) Count 5.3 thou/uL (4.8-10.8)
[2017-12-25 05:23] LABS: Anion Gap 9 mmol/L (10-20); BUN (Urea Nitrogen) 18 mg/dL (8.4-25.7); Calc. Creatinine Clearance 16 mL/min (70-130); Calcium 10.2 mg/dL (7.8-10.44); Carbon Dioxide 31 mmol/L (23-31); Chloride 102 mmol/L (98-107); Estimated GFR-MDRD 13; Glucose 77 mg/dL (80-115); Potassium 3.8 mmol/L (3.5-5.1); Sodium 138 mmol/L (136-145)
--- NOTE | 2017-12-25 07:30 | PDOC.FM ---
- Subjective Subjective: Pt was mostly NSR in the 70s overnight; he also has a LBBB. No shortness of breath or chest pain. VSS. - Objective MAR Reviewed: Yes Vital Signs & Weight: Vital Signs (12 hours) Temp Pulse Resp BP Pulse Ox 12/25/17 04:00 98.4 F 65 18 98/49 L 96 12/24/17 20:35 98.0 F 64 18 132/62 96 Weight Weight 59.2 kg I&O: 12/24/17 12/25/17 12/26/17 06:59 06:59 06:59 Intake Total 1300 1180 Output Total 0 2300 Balance 1300 -1120 Result Diagrams: 12/25/17 04:31 12/25/17 04:31 <Tatiana Bishop - Last Filed: 12/25/17 09:05> - Objective Vital Signs & Weight: Vital Signs (12 hours) Temp Pulse Pulse Pulse Resp BP BP 12/25/17 13:07 63 12/25/17 08:17 63 65 127/59 L 131/62 12/25/17 07:50 98.0 F 63 22 H 12/25/17 04:00 98.4 F 65 18 BP Pulse Ox Pulse Ox 12/25/17 13:07 12/25/17 08:17 95 12/25/17 07:50 113/58 L 96 12/25/17 04:00 98/49 L 96 Weight Weight 59.2 kg I&O: 12/24/17 12/25/17 12/26/17 06:59 06:59 06:59 Intake Total 1300 1180 Output Total 0 2300 Balance 1300 -1120 Result Diagrams: 12/25/17 04:31 12/25/17 04:31 <Sofi King - Last Filed: 12/25/17 14:30> Phys Exam - Physical Examination Constitutional: NAD HEENT: PERRLA, moist MMs Neck: no JVD, supple Respiratory: no wheezing, no rales, no rhonchi, clear to auscultation bilateral Cardiovascular: RRR, no significant murmur Gastrointestinal: soft, non-tender, no distention Musculoskeletal: no edema, pulses present Neurological: non-focal, normal sensation Psychiatric: normal affect, A&O x 3 Skin: no rash, normal turgor, cap refill <2 seconds <Tatiana Bishop - Last Filed: 12/25/17 09:05> Dx/Plan (1) Sepsis due to pneumonia Code(s): J18.9 - PNEUMONIA, UNSPECIFIED ORGANISM; A41.9 - SEPSIS, UNSPECIFIED ORGANISM Status: Acute (2) Acute respiratory failure with hypoxia Code(s): J96.01 - ACUTE RESPIRATORY FAILURE WITH HYPOXIA Status: Resolved (3) Community acquired pneumonia Code(s): J18.9 - PNEUMONIA, UNSPECIFIED ORGANISM Status: Acute (4) Hx of pleural effusion Code(s): Z87.09 - PERSONAL HISTORY OF OTHER DISEASES OF THE RESPIRATORY SYSTEM Status: Chronic (5) CAD (coronary artery disease) Code(s): I25.10 - ATHSCL HEART DISEASE OF [place] CORONARY ARTERY W/O ANG PCTRS Status: Chronic (6) ESRD (end stage renal disease) on dialysis Code(s): N18.6 - END STAGE RENAL DISEASE; Z99.2 - DEPENDENCE ON RENAL DIALYSIS Status: Chronic (7) HLD (hyperlipidemia) Code(s): E78.5 - HYPERLIPIDEMIA, UNSPECIFIED Status: Chronic (8) HTN (hypertension) Code(s): I10 - ESSENTIAL (PRIMARY) HYPERTENSION Status: Chronic (9) Hx of atrial fibrillation, no current medication Code(s): Z86.79 - PERSONAL HISTORY OF OTHER DISEASES OF THE CIRCULATORY SYSTEM Status: Resolved (10) Nonsustained supraventricular tachycardia Code(s): I47.1 - SUPRAVENTRICULAR TACHYCARDIA Status: Acute (11) Ventricular tachycardia, non-sustained Code(s): I47.2 - VENTRICULAR TACHYCARDIA Status: Acute (12) Bradycardia Code(s): R00.1 - BRADYCARDIA, UNSPECIFIED Status: Acute - Plan Plan: Sepsis 2/2 Community Acquired Pneumonia - Blood cultures drawn and show NGTD - Continue Abx therapy with levaquin, will transition to PO today - echo did not show any vegetations - normal procalcitonin, Ur Legionella/Strep Ag negative - Duonebs and supplemental O2 - will dc IV fluids; UOP adequate - monitor vitals Acute hypoxic respiratory failure, now resolved - Sats of 89% on RA in ED, now upper 90s on RA - Likely 2/2 #1 CAP - see above CAD s/p CABG over a year ago - Continue asa and statin - stress test today d/t nonsustained vtach, svt, and bradycardia on tele and >1 year since last stress Nonsustained VT, resolved- -4 beats while asleep 12/23, resolved -continue to monitor -stress test this am Nonsustained SVT, resolved -several beats yesterday morning 12/22, nonstained, resolved -stress test this am Bradycardia -40s-50s overnight 11/22 -Currently NSR in the 60-70s -Continue to monitor -stress test this am Hx of left sided pleural effusion - s/p thoracentesis about a week ago - cytology pending - records from Dr. Clinton pending ESRD on MWF HD - Dr. Franco Cobos consulted, appreciate recs - Continue HD MWF - Continue home medications - Pt received dialysis yesterday. Tolerated well. A fib s/p ablation-resolved - monitor on tele - continue home metoprolol HTN - Monitor on Tele - BP stable in ED - Continue home metoprolol and lisinopril HLD - Continue home statin VTE PPx: Lovenox, SCDs Diet: HH, Renal, Consult Fine Arts Chair Activity: Ad kat, fall precautions Dispo: if stress negative, pt can go home <Tatiana Bishop - Last Filed: 12/25/17 09:05> Attending Addendum - Attending Addendum Date/Time: 12/25/17 [id number] I personally evaluated the patient and discussed the management with Dr. Bishop. I agree with the History, Examination, Assessment and Plan documented above with any addition or exceptions noted below. The patient was seen while in stress. Results are pending. If negative, he will be discharged home. <Sofi King - Last Filed: 12/25/17 14:30>
--- NOTE | 2017-12-25 08:27 | PDOC.CTH ---
Cardiology Progress Note - Subjective No complaints todsay. No F/C noted. Ready to go home - Objective Vital Signs Temp Pulse Resp BP Pulse Ox 12/25/17 04:00 98.4 F 65 18 98/49 L 96 12/24/17 20:35 98.0 F 64 18 132/62 96 Weight 130 lb 8.218 oz 12/24/17 12/25/17 12/26/17 06:59 06:59 06:59 Intake Total 1300 1180 Output Total 0 2300 Balance 1300 -1120 - Physical Examination General/Neuro: alert & oriented x3, NAD Neck: carotid US brisk, no JVD present Lungs: CTA, unlabored respirations Heart: RRR Abdomen: no HSM, NT/ND, soft Extremities: + femoral B - Labs Result Diagrams: 12/25/17 04:31 12/25/17 04:31 - Assessment/Plan 1. NSVT 2. CAD 3. S/p CABG 4. ESRD Recommend stress today to assess for ishcmiea. Pt with CABG 2 yrs ago. EF normal. If no significant ischemia, recommend continuing BB treatment given normal EF an no symptoms of syncope, presyncope
[2017-12-25] MEDS: Sevelamer Carbonate 800 MG TAB PO SCH ×3 (13:05→16:06)
[2017-12-25] MEDS: Fish Oil 1,000 MG CAP PO SCH (13:06)
[2017-12-25] MEDS: Lisinopril 2.5 MG TAB PO SCH (13:07)
[2017-12-25] MEDS: Cinacalcet HCl 30 MG TAB PO SCH (13:07)
[2017-12-25] MEDS: Multivitamin W/ Minerals 1 TAB PO SCH (13:08)
[2017-12-25] MEDS: Atorvastatin Calcium 20 MG TAB PO SCH (13:09)
[2017-12-25] MEDS ORDERED: Regadenoson 0.4 MG/5 ML SYRINGE ONE (13:55)
--- NOTE | 2017-12-25 14:56 | NM ---
CARDIAC SPECT HISTORY: Chest pain, coronary artery disease, status post CABG, CHF, atrial fibrillation, end stage renal dise ase, hypertension, diabetes, and dyslipidemia. TECHNIQUE: A myocardial perfusion scan was performed using the single-isotope 1-day protocol with Technetium 99m sestamibi. Ten mCi were injected intravenously for the rest exam followed by 30 mCi for the stress study. Pharmacologic stress with LexiScan is monitored and interpreted by Dr. Patel. FINDINGS: A fixed defect is seen in the inferolateral wall. No reversible defects are seen. GATED SPECT LVEF: 49%. WALL MOTION EXAM: There is mild hypokinesis in the inferolateral wall. IMPRESSION: 1. No evidence of reversible ischemia. 2. Inferolateral wall scar. POS: [facility]
[2017-12-25] MEDS: Guaifenesin DM 100-10/5 ML UDCUP PO PRN (16:06)
[2017-12-25 16:17] VITALS: BP 141/63; TEMP 97.9
== END 2017-12-25 16:39 | disposition home or self-care (01) | DRG 871 ==
LOC: ERS 18:43 → 2NO 21:12
PROVIDERS: ADMIT Family Medicine; ATTEND Family Medicine
DX: A41.9 Sepsis, unspecified organism (principal); N18.6 End stage renal disease; J18.9 Pneumonia, unspecified organism; J96.01 Acute respiratory failure with hypoxia; I47.2 Ventricular tachycardia; I50.42 Chronic combined systolic (congestive) and diastolic (congestive) heart failure; I13.2 Hypertensive heart and chronic kidney disease with heart failure and with stage 5 chronic kidney disease, or end stage renal disease; I25.10 Atherosclerotic heart disease of native coronary artery without angina pectoris; Z95.1 Presence of aortocoronary bypass graft; E78.5 Hyperlipidemia, unspecified; Z99.2 Dependence on renal dialysis; I25.2 Old myocardial infarction; Z72.0 Tobacco use
CPT/HCPCS: 36415; 71045; 78452; 80048; 80053; 81001; 82274; 82607; 82746; 83605; 83735; 83880; 84100; 84145; 85025; 85610; 85730; 86480; 86580; 87040; 87899; 90935; 93005; 93017; 93306; 94640; 94760; 96361; 96365; A4216; A9500; G0257; G8978-GP-CJ; G8979-GP-CJ; G8980-GP-CJ; G8987-GO-CI; G8988-GO-CI; G8989-GO-CI; J1650; J1956; J2785; J3370; J7620

== ENCOUNTER 2018-01-24 14:18 | Outpatient (CLI) | payer MEDICARE ==
--- NOTE | 2018-01-24 15:30 | RAD ---
CHEST 2 VIEWS: Date: 01/24/18 HISTORY: Pleural effusion. COMPARISON: 12/21/17. FINDINGS: There are sternotomy wires. There is atherosclerosis of the aorta. Heart is enlarged. There are pleur al and parenchymal changes of the left lung base, which are similar to the previous examination. Stab le increased density in the left lung apex. Stable aeration of the right lung. There is no pneumothor ax. Stable vascular stents. IMPRESSION: 1. Stable cardiomegaly. 2. Persistent pleural and parenchymal changes of left hemithorax. The degree of opacification of the left hemithorax has not significantly changed. POS: [facility]
== END 2018-01-24 14:19 | disposition home or self-care (01) ==
LOC: RAD 14:18
PROVIDERS: ATTEND Thoracic Surgery (Cardiothoracic Vascular Surgery)
DX: J90 Pleural effusion, not elsewhere classified (principal); I51.7 Cardiomegaly; R91.8 Other nonspecific abnormal finding of lung field
CPT/HCPCS: 71046

== ENCOUNTER 2020-06-12 18:34 | Inpatient (IN) | payer MEDICARE, OTHER ==
[2020-06-12 20:12] LABS: #Eosinphils 0.3 thou/uL (0.0-0.7); #Lymphocytes 0.5 thou/uL (1.20-3.40); #Monocytes 0.5 thou/uL (0.11-0.59); #Neutrophils 6.2 thou/uL (1.40-6.50); %Basophils 0.4 % (0.0-1.0); %Eosinophils 3.6 % (0.0-10.0); %Lymphocytes 6.1 % (21.0-51.0); %Neutrophils 82.8 % (42.0-75.0); Hemoglobin 13.7 g/dL (14.0-18.0); Mean Corpuscular HGB CONC 34.5 g/dL (32.0-36.0); Mean Platelet Volume 7.7 fL (7.4-10.4); Platelet Count 141 thou/uL (130-400); RBC Distribution Width 14.2 % (11.5-14.5); Red Blood Cell (RBC) Count 3.91 mill/uL (4.70-6.10); White Blood Cell (WBC) Count 7.5 thou/uL (4.8-10.8)
--- NOTE | 2020-06-12 20:24 | RAD ---
Frontal radiograph chest: 06/12/2020 COMPARISON: 09/20/2018 HISTORY: Generalized weakness with nausea vomiting and diarrhea FINDINGS: There is hazy nonspecific groundglass opacity within the mid right lung zone. There is enla rgement of the cardiac silhouette. Vascular stent material is seen in the axillary and subclavian region on the right. There is atherosclerotic calcification of the aortic arch. The prominent cardiac silhouette limits assessment of the right lung base. Increased density in the right lung base is noted, stable when compared to the prior exam. IMPRESSION: New hazy groundglass opacity in the mid right lung zone. This may signify atypical infect ious pneumonitis or aspiration. Covid 19 is a possibility.
[2020-06-12 20:54] LABS: CKMB 3.3 ng/mL (0-6.6)
[2020-06-12] MEDS ORDERED: Vancomycin 1 GM/200 ML BAG ONE (21:40)
[2020-06-12] MEDS ORDERED: Cefepime 2 GM VIAL ONE (21:40)
[2020-06-12 22:03] LABS: Albumin 3.7 g/dL (3.4-4.8)
[2020-06-12 22:04] LABS: Chloride 99 mmol/L (98-107); Potassium 3.7 mmol/L (3.5-5.1); Sodium 140 mmol/L (136-145)
[2020-06-12 22:05] LABS: Calcium 10.4 mg/dL (7.8-10.44); Glucose 77 mg/dL (80-115)
[2020-06-12 22:06] LABS: Globulin 3.1 g/dL (2.4-3.5); Protein, Total 6.8 g/dL (5.8-8.1)
[2020-06-12 22:07] LABS: Anion Gap 19 mmol/L (10-20); Bilirubin, Total 0.7 mg/dL (0.2-1.2); Carbon Dioxide 26 mmol/L (23-31)
[2020-06-12 22:08] LABS: Alkaline Phosphatase 85 U/L (40-110)
[2020-06-12 22:09] LABS: Calc. Creatinine Clearance 0 mL/min (70-130); Estimated GFR-MDRD 10
[2020-06-12 22:10] LABS: BUN (Urea Nitrogen) 34 mg/dL (8.4-25.7)
[2020-06-12 22:11] LABS: ALT (SGPT) Less than 7 U/L (8-55); AST (SGOT) 15 U/L (5-34); Magnesium 2.3 mg/dL (1.6-2.6)
[2020-06-12 22:12] LABS: CK (CPK) 59 U/L (30-200); Lipase 19 U/L (8-78)
[2020-06-12 22:17] LABS: SARS-CoV-2 NAA Rapid Test Not Detected (NotDetected)
[2020-06-12 22:23] LABS: Troponin I 0.081 ng/mL (< 0.028)
[2020-06-12] MEDS ORDERED: Calcium Carbonate 500 MG ChewTAB PO PRN (23:05)
[2020-06-12] MEDS ORDERED: HYDROcodone/Acetaminophen 5/325 mg Tablet PO PRN (23:05)
[2020-06-12] MEDS ORDERED: Acetaminophen 650 MG Suppository PR PRN (23:05)
[2020-06-12] MEDS ORDERED: Acetaminophen 325 MG TAB PO PRN (23:05)
[2020-06-12] MEDS ORDERED: Guaifenesin DM 100-10/5 ML UDCUP PO PRN (23:05)
[2020-06-12] MEDS ORDERED: Ondansetron ODT 4 MG TAB PO PRN (23:05)
[2020-06-12] MEDS ORDERED: Ondansetron PF 4 MG/2 ML Vial IVP PRN (23:05)
[2020-06-13 00:40] VITALS: BMI 20.5
--- NOTE | 2020-06-13 00:48 | PDOC.HHP ---
Hospitalist HPI - History of Present Illness dyspnea History of Present Illness: Case of an 64y/o male with pmhx of htn, tobacco abuse, DMt2 on no therapy and esrd who comes to hospital due to dyspnea of 3-4 days of duration. patient refers he was on his usual state of health until 3 weeks ago when he started with cough, he states is productive of grayish sputum, these cough kept progressing until 3-4 days ago when he started with progressive dyspnea nausea vomiting and intermittent diarrhea. patient denies any fever chills does refer general malaise and anorexia. patient also denies any chest pain palpitation or diaphoresis Hospitalist ROS - Review of Systems All other systems reviewed; all pertinent +/- noted in HPI/Subj Hospitalist History - Past Surgical History Other Surgical History: fistula creation - Family History Family History: reports: diabetes mellitus, hypertension - Social History Tobacco Type: chewing tobacco Alcohol: reports: Occassional Drugs: reports: none Living Situation: With Family - Exam General Appearance: NAD, awake alert Eye: PERRL, anicteric sclera ENT: normocephalic atraumatic, no oropharyngeal lesions Neck: supple, symmetric, no JVD, no thyromegaly Heart: RRR, no gallops, no rubs, murmur present Respiratory: no wheezes, no rales, normal chest expansion, rhonchi Gastrointestinal: soft, non-tender, non-distended, normal bowel sounds Extremities: no cyanosis, no clubbing, no edema Skin: normal turgor, no lesions, no rashes Neurological: cranial nerve grossly intact, normal sensation to touch, no weakness Musculoskeletal: normal tone, normal strength, no muscle wasting Psychiatric: normal affect, normal behavior, A&O x 3 Hospitalist Results - Labs Result Diagrams: 06/12/20 18:45 06/12/20 21:24 Lab results: WBC 7.5 thou/uL (4.8-10.8) 06/12/20 18:45 Hgb 13.7 g/dL (14.0-18.0) L 06/12/20 18:45 Hct 39.8 % (42.0-52.0) L 06/12/20 18:45 MCV 102.0 fL (78.0-98.0) H 06/12/20 18:45 Plt Count 141 thou/uL (130-400) 06/12/20 18:45 Neutrophils % 82.8 % (42.0-75.0) H 06/12/20 18:45 Sodium 140 mmol/L (136-145) 06/12/20 21:24 Potassium 3.7 mmol/L (3.5-5.1) 06/12/20 21:24 Chloride 99 mmol/L (98-107) 06/12/20 21:24 Carbon Dioxide 26 mmol/L (23-31) 06/12/20 21:24 BUN 34 mg/dL (8.4-25.7) H 06/12/20 21:24 Creatinine 5.63 mg/dL (0.7-1.3) H 06/12/20 21:24 Glucose 77 mg/dL (80-115) L 06/12/20 21:24 Calcium 10.4 mg/dL (7.8-10.44) 06/12/20 21:24 Total Bilirubin 0.7 mg/dL (0.2-1.2) 06/12/20 21:24 AST 15 U/L (5-34) 06/12/20 21:24 ALT Less than 7 U/L (8-55) L 06/12/20 21:24 Alkaline Phosphatase 85 U/L (40-110) 06/12/20 21:24 Creatine Kinase 59 U/L (30-200) 06/12/20 21:24 CK-MB (CK-2) 3.3 ng/mL (0-6.6) 06/12/20 18:45 Troponin I 0.081 ng/mL (< 0.028) H 06/12/20 21:24 Serum Total Protein 6.8 g/dL (5.8-8.1) 06/12/20 21:24 Albumin 3.7 g/dL (3.4-4.8) 06/12/20 21:24 Lipase 19 U/L (8-78) 06/12/20 21:24 Hospitalist H&P A/P - Problem (1) Acute respiratory failure with hypoxia Code(s): J96.01 - ACUTE RESPIRATORY FAILURE WITH HYPOXIA Status: Resolved (2) Pneumonia due to COVID-19 virus Code(s): U07.1 - COVID-19; J12.89 - OTHER VIRAL PNEUMONIA Status: Acute (3) ESRD (end stage renal disease) on dialysis Code(s): N18.6 - END STAGE RENAL DISEASE; Z99.2 - DEPENDENCE ON RENAL DIALYSIS Status: Chronic (4) End-stage renal disease Code(s): N18.6 - END STAGE RENAL DISEASE Status: Chronic (5) HLD (hyperlipidemia) Code(s): E78.5 - HYPERLIPIDEMIA, UNSPECIFIED Status: Chronic (6) Hypertension, benign Code(s): I10 - ESSENTIAL (PRIMARY) HYPERTENSION Status: Chronic - Plan Plan: 64y/o male with the stated pmhx who present with hypoxia likely to covid 19 covdi 19 pneumonia - cxr consistent with atypical pneumonia / viral pneumonia - lymphonenia consistent with covid 19 - initial test negative - on levaquin renally adjusted - ID consulted - decadron 6mg ivd - f/u inflammation markers - f/u blood cultures - f/u flu swab hypoxic respiratory failure - 88% 02 at RA - 02 supplementation - wean as tolerated n/v - prn symptomtic tx esrd - nephrology consulted - monitor electrolites DM - hx of dm, no current tx - will monitor fasting blood sugars - bmp 77 glucouse htn - continue home meds
[2020-06-13 01:53] LABS: Troponin I 0.075 ng/mL (< 0.028)
[2020-06-13] MEDS ORDERED: Enoxaparin Sodium 30 MG/0.3 ML SYRINGE SC SCH (09:00)
[2020-06-13] MEDS ORDERED: Dexamethasone 4 mg/ml Vial SLOW IVP SCH (09:00)
[2020-06-13 12:04] LABS: Hemoglobin 11.3 g/dL (14.0-18.0); Mean Corpuscular HGB CONC 31.7 g/dL (32.0-36.0); Mean Corpuscular Hemoglobin 31.8 pg (27.0-31.0); Mean Platelet Volume 8.5 fL (7.4-10.4); Platelet Count 150 thou/uL (130-400); RBC Distribution Width 14.2 % (11.5-14.5); Red Blood Cell (RBC) Count 3.56 mill/uL (4.70-6.10)
[2020-06-13 12:13] LABS: Band 30 % (5-11); Eosinophils 2 % (0-10); Lymphocytes 4 % (21-51); MDiff Complete? YES; Neutrophil 61 % (42-75); Reactive Lymphocytes 3 % (0-10)
[2020-06-13 12:21] LABS: ALT (SGPT) Less than 7 U/L (8-55); AST (SGOT) 13 U/L (5-34); Albumin 3.5 g/dL (3.4-4.8); Alkaline Phosphatase 74 U/L (40-110); Anion Gap 18 mmol/L (10-20); BUN (Urea Nitrogen) 39 mg/dL (8.4-25.7); Bilirubin, Total 0.6 mg/dL (0.2-1.2); Calc. Creatinine Clearance 10 mL/min (70-130); Carbon Dioxide 23 mmol/L (23-31); Chloride 99 mmol/L (98-107); Estimated GFR-MDRD 9; Globulin 3.1 g/dL (2.4-3.5); Glucose 73 mg/dL (80-115); Potassium 4.1 mmol/L (3.5-5.1); Protein, Total 6.6 g/dL (5.8-8.1); Sodium 136 mmol/L (136-145)
--- NOTE | 2020-06-13 19:41 | PDOC.BPN ---
- Brief Progress Note Encounter Date: 06/13/20 Patient was admitted overnight on account of acute hypoxic respiratory failure. Covid was negative. Acute hypoxic respiratory failure Likely secondary to viral pneumoniaCovid negative Initial concerns for Covid with elevated D-dimer and ferritin. Ferritin also 7.82 above 2000 Continue antibiotics for now Supportive treatment. Pneumonia Chest x-ray shows hazy groundglass opacities in the mid right lung zone Treat as above. No leukocytosis but has 30% bands Continue levofloxacin for now End-stage renal disease Nephrology consulted. Next Hypertension Resume home medications VT prophylaxisLovenox changed to heparin CODE STATUSfull code
--- NOTE | 2020-06-13 19:53 | CON ---
DATE OF CONSULTATION: 06/13/2020 REASON FOR CONSULTATION: Pneumonia. HISTORY OF PRESENT ILLNESS: A 64-year-old, last time I saw him was in January 2018 when he presented with a history of type 2 diabetes, hypertension, end-stage renal disease on hemodialysis through an AV fistula, coronary artery disease and prior bypass graft surgery. He had bacteremia at the time and chronic pleural effusion with hemothorax with entrapment. He had decortication and had a methicillin-sensitive Staph aureus line sepsis. I did not see him since and now he came in with a 2 or 3 weeks history of cough and fever. In the emergency room, he was saturating 90% on 2 L nasal cannula O2, BP 115/90, pulse 88, breathing 15 to 20 times a minute, and he did not have a fever. The other findings included a white cell count 7.5, hemoglobin 13.7, and platelets 141 with 82% neutrophils. Sodium 140, creatinine 5.63, and calcium 10.4. CK is 59. SARS-CoV RNA PCR negative on the . Chest x-ray with bilateral areas of scattered infiltrates, ground-glass opacity right mid lung zone. Currently, Mr. Varela is lying pretty flat in bed. He is very comfortable at rest. He is on room air and is saturating 98. There is one measurement of 91, I am not sure this is accurate because all the previous ones were very high. He denies any headaches. Some blurred vision. No sore throat. No cough or dyspnea. He feels much improved. No abdominal pain. He does not have any urine output. No lower extremity symptoms. PAST MEDICAL HISTORY: End-stage renal disease, coronary artery disease, bypass graft surgery, type 2 diabetes, line sepsis due to an MSSA or methicillin sensitive Staph aureus. FAMILY HISTORY: Diabetes and hypertension. 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 Lives by himself in the area. Chews tobacco, but does not smoke. He used to smoke in the past. Occasional alcoholic beverage use. No drug use. ALLERGY HISTORY: Penicillins with rash. CURRENT MEDICATIONS: 1. Decadron. 2. Levaquin. 3. Ondansetron. PHYSICAL EXAMINATION: VITAL SIGNS: Temperature has been normal, BP 150/86, heart rate 83, and breathing 18 times a minute. GENERAL: Appears very comfortable at rest. SKIN: Shows the AV fistula in the right upper extremity. He does not have a Lorenzana catheter. No lymphadenopathy. HEENT: Ocular movements conjugate. Oral cavity with only a few remaining teeth with marked decay. Oral mucosa normal. NECK: Supple. LUNGS: Symmetric and clear breath sounds, right and left hemithorax. HEART: S1 and S2. Regular rate without murmurs. ABDOMEN: Soft, not distended or tender. No ascites. No bladder distention. EXTREMITIES: No joint inflammatory activity. No edema. Pulses 1+ in dorsalis pedis. Plantar responses are flexor. NEURO: Nonfocal. He knows his name and where he is. He has quite a bit of problems with enunciation of words and is not very easy to understand him, but he does not seem to be have been in any delusional thinking process. He is not confused. LABORATORY DATA: Latest labs; white cell count 6.0, hemoglobin 11.3, and platelets 150 with 30% bands on the 22. Microbiology, there are 2 blood cultures pending at this time. ASSESSMENT: End-stage renal disease, coronary artery disease, type 2 diabetes, two weeks history of cough, sputum production, bandemia, and abnormal chest x-ray. DISCUSSION: The overall findings argue against COVID pneumonia, his illness behaves more like a regular type of bacterial community-acquired pneumonia. He is very comfortable at rest. We will go ahead and submit a COVID or SARS-CoV-2 antibody test and repeat the PCR test. If those are negative, then I would discontinue isolation and just continue treating with antimicrobial therapy. Consider discharge planning then. Job ID: [id number] [facility]
[2020-06-13] MEDS: Heparin 5,000 UNITS/ML VIAL SC SCH (21:21)
[2020-06-13] MEDS: Atorvastatin Calcium 20 MG TAB PO SCH (21:22)
[2020-06-14] MEDS ORDERED: Heparin 10,000 UNITS/ 10 ML VIAL ONE (09:43)
[2020-06-14 10:30] LABS: SARS-CoV-2 IgG Ab Non-Reactive (NonReactive); SARS-CoV-2 IgG Index 0.01 S/CO (< 1.40)
[2020-06-14 11:37] LABS: SARS-CoV-2 MS2 Positive; SARS-CoV-2 N Gene Negative; SARS-CoV-2 S Gene Negative; SARS-CoV-2 by NAA Not Detected (NotDetected); SARS-CoV-2 orf1ab Negative
[2020-06-14] MEDS: Sevelamer Carbonate 800 MG TAB PO SCH ×2 (16:52→16:57)
[2020-06-14] MEDS: Heparin 5,000 UNITS/ML VIAL SC SCH ×2 (16:52→21:36)
[2020-06-14] MEDS: Cinacalcet HCl 30 MG TAB PO SCH (16:56)
[2020-06-14] MEDS: Aspirin 81 mg Enteric Coated Tablet PO SCH (16:56)
[2020-06-14] MEDS: Docusate 100 MG CAP PO SCH (16:57)
[2020-06-14] MEDS: Fish Oil 1,000 MG CAP PO SCH (16:57)
[2020-06-14] MEDS: Cholecalciferol 1,000 UNITS (25 MCG) TAB PO SCH (16:57)
[2020-06-14] MEDS: Atorvastatin Calcium 20 MG TAB PO SCH (21:36)
[2020-06-15 07:24] LABS: #Eosinphils 0.1 thou/uL (0.0-0.7); #Lymphocytes 0.6 thou/uL (1.20-3.40); #Monocytes 0.6 thou/uL (0.11-0.59); #Neutrophils 3.6 thou/uL (1.40-6.50); %Basophils 0.9 % (0.0-1.0); %Eosinophils 2.7 % (0.0-10.0); %Lymphocytes 12.3 % (21.0-51.0); %Monocytes 11.2 % (0.0-10.0); %Neutrophils 72.9 % (42.0-75.0); Hemoglobin 12.2 g/dL (14.0-18.0); Mean Corpuscular HGB CONC 32.6 g/dL (32.0-36.0); Mean Corpuscular Hemoglobin 32.8 pg (27.0-31.0); Mean Platelet Volume 6.9 fL (7.4-10.4); Platelet Count 161 thou/uL (130-400); RBC Distribution Width 14.1 % (11.5-14.5); Red Blood Cell (RBC) Count 3.72 mill/uL (4.70-6.10); White Blood Cell (WBC) Count 4.9 thou/uL (4.8-10.8)
[2020-06-15 07:38] LABS: Anion Gap 15 mmol/L (10-20); BUN (Urea Nitrogen) 30 mg/dL (8.4-25.7); Calc. Creatinine Clearance 12 mL/min (70-130); Calcium 10.2 mg/dL (7.8-10.44); Carbon Dioxide 28 mmol/L (23-31); Chloride 99 mmol/L (98-107); Estimated GFR-MDRD 11; Glucose 72 mg/dL (80-115); Sodium 138 mmol/L (136-145)
[2020-06-15] MEDS: Cinacalcet HCl 30 MG TAB PO SCH (09:30)
[2020-06-15] MEDS: Sevelamer Carbonate 800 MG TAB PO SCH ×2 (09:31→13:37)
[2020-06-15] MEDS: Aspirin 81 mg Enteric Coated Tablet PO SCH (09:31)
[2020-06-15] MEDS: Docusate 100 MG CAP PO SCH (09:31)
[2020-06-15] MEDS: Fish Oil 1,000 MG CAP PO SCH (09:31)
[2020-06-15] MEDS: Cholecalciferol 1,000 UNITS (25 MCG) TAB PO SCH (09:32)
[2020-06-15] MEDS: Heparin 5,000 UNITS/ML VIAL SC SCH (09:32)
[2020-06-15 12:48] VITALS: BP 132/75; TEMP 97.7
--- NOTE | 2020-06-15 17:51 | PDOC.DS.DS ---
Provider - Provider Date of Admission: 06/12/20 21:53 Date of Discharge: 06/15/20 Admitting Provider: Nico Duncan Primary Care Physician: OVIDIO Jerome Course - Hospital Course Hospital Course: This is a 64-year-old male patient with a history of hypertension, tobacco abuse diabetes mellitus and ESRD on dialysis who presented with worsening dyspnea of 3 days duration. On initial evaluation, his chest x-ray was consistent with atypical pneumonia/viral with concerns for Covid. Initial Covid test was negative. Due to increasing concerns she had a repeat Co vid test which was also negative. ID was consulted and was evaluated to have regular, possible bacterial pneumonia. He was started on levofloxacin. influenza was negative and blood cultures grew no organisms. He did not require oxygen and was discharged to complete 7-day course of doxycycline. He was generally stable. Resuscitation Status: 06/12/20 23:05 Resuscitation Status Routine Resuscitation Status: FULL: Full Resuscitation - Labs Lab Results: 06/15/20 07:13 06/15/20 07:13 Abnormal Lab Results - Last 48 hrs 06/15/20 07:13: BUN 30 H, Creatinine 5.26 H 06/15/20 07:13: RBC 3.72 L, Hgb 12.2 L, Hct 37.5 L, MCV 101.0 H, MCH 32.8 H, MPV 6.9 L, Lymphocytes % 12.3 L, Monocytes % 11.2 H, Lymphocytes # 0.6 L, Monocytes # 0.6 H Microbiology - Entire Visit 06/12/20 23:33 Venous blood - Left Arm Blood Culture - Preliminary NO GROWTH AT 48 HOURS 06/12/20 23:33 Venous blood - Left Hand Blood Culture - Preliminary NO GROWTH AT 48 HOURS 06/13/20 01:55 Nasal swab Influenza Types A,B Direct EIA - Final - Physical Exam Vitals: Vital Signs (12 hours) Temp Pulse Resp BP Pulse Ox 06/15/20 12:00 97.7 F 80 16 132/75 97 06/15/20 09:00 98.1 F 74 16 121/65 96 06/15/20 07:46 98 Weight Admit Weight 138 lb 9.6 oz Weight 138 lb 9.6 oz Physical Exam: The patient was seen and examined on the day of discharge. General: No acute distress. Respiratory system: Air entry adequate bilaterally. CVS: S1-S2 present, no murmurs. Abdomen: Benign Extremities: No edema Problem - Discharge Plan Assessment: Atypical pneumonia Possibly viral However cannot rule out bacterial We will discharge on doxycycline for a week. He will need repeat imaging in 6-8 ESRD Continue home dialysis Follow-up with nephrology Follow-up: Repeat chest x-ray in 6 to 8 weeks for resolution Plan - Discharge Medications Prescriptions: Levofloxacin 500 mg PO Q2D #4 tablet Doxycycline [Vibramycin] 100 mg PO BID #14 cap Home Medications: Medication Instructions Recorded Confirmed Type Fish Oil 1 tab PO QAM 01/12/16 06/13/20 History Atorvastatin Calcium [Lipitor] 20 mg PO HS #0 tab 02/29/16 06/13/20 Rx Aspirin [Low Dose Aspirin EC] 81 mg PO QAM 12/20/17 06/13/20 History Cinacalcet HCl [Sensipar] 60 mg PO DAILY 12/21/17 06/13/20 History Sevelamer Carbonate [Renvela] 3,200 mg PO TID-WM 12/21/17 06/13/20 History Cholecalciferol (Vitamin D3) 1,000 unit PO DAILY 06/13/20 06/13/20 History [Vitamin D3] Docusate [Colace] 100 mg PO DAILY 06/13/20 06/13/20 History guaiFENesin [Guaifenesin] 400 mg PO DAILY 06/13/20 06/13/20 History Levofloxacin 500 mg PO Q2D #4 tablet 06/14/20 Rx Doxycycline [Vibramycin] 100 mg PO BID #14 cap 06/15/20 Rx Allergies: Penicillins Allergy (Verified 06/13/20 00:44) - Discharge Instructions Discharge Instructions:: You have dialysis scheduled for 06/16/20 @ 5:00AM [facility]. And then will continue to with your regularly scheduled chair time on 06/18/20. - Follow up Plan Referrals: Franco Cobos MD [Active] - Oly Feliciano FNP [Primary Care Provider] - Disposition: HOME Quality - Care Measures CORE MEASURES:: N/A
--- NOTE | 2020-06-16 09:19 | EKG ---
Test Reason : Blood Pressure : / mmHG Vent. Rate : 080 BPM Atrial Rate : 080 BPM P-R Int : 152 ms QRS Dur : 150 ms QT Int : 454 ms P-R-T Axes : -07 039 040 degrees QTc Int : 523 ms Sinus rhythm with occasional Premature ventricular complexes Right bundle branch block T wave abnormality, consider lateral ischemia Abnormal ECG No previous ECGs available Confirmed by TIFFANY FOWLER MD ([id number]) on 06/16/2020 9:19:37 AM Referred By: CLAUDIA Confirmed By:TIFFANY FOWLER MD
== END 2020-06-15 15:15 | disposition home or self-care (01) | DRG 193 ==
LOC: ERS 18:34 → 2SW 21:53
PROVIDERS: ADMIT Internal Medicine; ATTEND Internal Medicine
PROC: 8E0ZXY6 Isolation (ICD-10-PCS; principal; 2020-06-12)
PROC: 5A1D70Z Performance of Urinary Filtration, Intermittent, Less than 6 Hours Per Day (ICD-10-PCS; 2020-06-14)
DX: J15.9 Unspecified bacterial pneumonia (principal); N18.6 End stage renal disease; J96.01 Acute respiratory failure with hypoxia; I12.0 Hypertensive chronic kidney disease with stage 5 chronic kidney disease or end stage renal disease; Z20.828 Contact with and (suspected) exposure to other viral communicable diseases; J12.9 Viral pneumonia, unspecified; E11.22 Type 2 diabetes mellitus with diabetic chronic kidney disease; F17.220 Nicotine dependence, chewing tobacco, uncomplicated; E78.5 Hyperlipidemia, unspecified; I25.10 Atherosclerotic heart disease of native coronary artery without angina pectoris; Z99.2 Dependence on renal dialysis; Z88.0 Allergy status to penicillin; Z79.899 Other long term (current) drug therapy; Z79.82 Long term (current) use of aspirin
CPT/HCPCS: 36415; 36416; 71045; 80048; 80053; 82550; 82553; 82728; 83690; 83735; 84145; 84484; 85007; 85025; 85027; 85379; 86140; 86769; 87040; 87635; 87804; 90935; 93005; 93010; 96365; 96368; 96375; G0257; J0692; J1100; J1644; J1650; J1956; J3370; U0002; U0003

== ENCOUNTER 2021-09-19 10:43 | Outpatient (CLI) | payer MEDICARE | END 2021-09-19 10:44 | disposition home or self-care (01) | LOC: BICRAD 10:43 | PROVIDERS: ATTEND Internal Medicine Nephrology | DX: R06.02 Shortness of breath (principal); R05.9 Cough, unspecified | CPT/HCPCS: 71046 ==

== ENCOUNTER 2021-11-30 14:16 | Outpatient (CLI) | payer MEDICARE, OTHER | END 2021-11-30 14:17 | disposition home or self-care (01) | LOC: BICRAD 14:16 | PROVIDERS: ATTEND Internal Medicine | DX: R63.4 Abnormal weight loss (principal); R68.81 Early satiety; D12.6 Benign neoplasm of colon, unspecified; I51.7 Cardiomegaly | CPT/HCPCS: 71046 ==

== ENCOUNTER 2021-12-29 09:58 | Outpatient (CLI) | payer MEDICARE, OTHER | END 2021-12-29 09:59 | disposition home or self-care (01) | LOC: LABBT 09:58 | PROVIDERS: ATTEND Internal Medicine | DX: D12.6 Benign neoplasm of colon, unspecified (principal); R63.4 Abnormal weight loss; R68.81 Early satiety; Z20.822 Contact with and (suspected) exposure to COVID-19 | CPT/HCPCS: U0003; U0005 ==

== ENCOUNTER 2022-01-03 06:21 | Day surgery (SDC) | payer MEDICARE, OTHER ==
[2021-12-30 10:18] VITALS: BMI 18.4
[2022-01-03] MEDS ORDERED: PROPOFOL 200 MG/20 ML VIAL ONE (09:23)
[2022-01-03] MEDS ORDERED: Lidocaine 1% PF 5 ML VIAL ONE (09:23)
== END 2022-01-03 11:18 | disposition home or self-care (01) ==
LOC: SDC 06:21
PROVIDERS: ATTEND Internal Medicine
PROC: 0DB68ZX Excision of Stomach, Via Natural or Artificial Opening Endoscopic, Diagnostic (ICD-10-PCS; principal; 2022-01-03)
PROC: 0DBM8ZX Excision of Descending Colon, Via Natural or Artificial Opening Endoscopic, Diagnostic (ICD-10-PCS; 2022-01-03)
PROC: 0DBP8ZX Excision of Rectum, Via Natural or Artificial Opening Endoscopic, Diagnostic (ICD-10-PCS; 2022-01-03)
DX: D12.4 Benign neoplasm of descending colon (principal); K62.1 Rectal polyp; K31.7 Polyp of stomach and duodenum; K31.89 Other diseases of stomach and duodenum; K21.00 Gastro-esophageal reflux disease with esophagitis, without bleeding; K44.9 Diaphragmatic hernia without obstruction or gangrene; K64.8 Other hemorrhoids; Q43.8 Other specified congenital malformations of intestine; R68.81 Early satiety; R63.4 Abnormal weight loss; Z68.1 Body mass index [BMI] 19.9 or less, adult; Z86.010 Personal history of colon polyps; Z79.82 Long term (current) use of aspirin; Z79.899 Other long term (current) drug therapy; Z88.0 Allergy status to penicillin; Z95.1 Presence of aortocoronary bypass graft; Z95.2 Presence of prosthetic heart valve
CPT/HCPCS: 88305; J2704

== ENCOUNTER 2022-07-03 09:03 | Inpatient (IN) | payer MEDICARE, OTHER ==
[2022-07-03 10:18] LABS: #Eosinphils 0.1 thou/uL (0.0-0.7); #Lymphocytes 0.5 thou/uL (1.20-3.40); #Monocytes 0.6 thou/uL (0.11-0.59); #Neutrophils 9.1 thou/uL (1.40-6.50); %Basophils 0.4 % (0.0-1.0); %Eosinophils 0.6 % (0.0-10.0); %Lymphocytes 4.9 % (21.0-51.0); %Monocytes 6.2 % (0.0-10.0); Hemoglobin 11.9 g/dL (14.0-18.0); Mean Corpuscular HGB CONC 31.6 g/dL (32.0-36.0); Mean Platelet Volume 6.8 fL (7.4-10.4); Platelet Count 357 10x3/uL (130-400); RBC Distribution Width 12.6 % (11.5-14.5); White Blood Cell (WBC) Count 10.3 10x3/uL (4.8-10.8)
[2022-07-03 11:01] LABS: CKMB 4.2 ng/mL (0-6.6)
[2022-07-03 11:07] LABS: Chloride 97 mmol/L (98-107); Sodium 137 mmol/L (136-145)
[2022-07-03 11:13] LABS: Actual Bicarbonate (HCO3v) 18 mEq/L (22-28); Analyzer IN Cardio ER; Base Excess -6.7 mEq/L (-2.0 to +3.0); Calcium, Ionized (venous) 1.04 mmol/L (1.16-1.32); Chloride (VBG) 96 mmol/L (98-106); Hemoglobin (Hb) 13.3 g/dL (12.6-17.4); Potassium (VBG) 5.93 mmol/L (3.70-5.30); Sodium 132.9 mmol/L (133-146); pH (venous) 7.33 (7.32-7.43)
[2022-07-03 11:17] LABS: Anion Gap 30 mmol/L (10-20); Carbon Dioxide 17 mmol/L (23-31)
[2022-07-03 11:46] LABS: ALT (SGPT) 14 U/L (8-55); AST (SGOT) 24 U/L (5-34); Albumin 4.2 g/dL (3.4-4.8); Alkaline Phosphatase 249 U/L (40-110); BUN (Urea Nitrogen) 75 mg/dL (8.4-25.7); Bilirubin, Total 0.7 mg/dL (0.2-1.2); Calc. Creatinine Clearance 0 mL/min (70-130); Calcium 9.6 mg/dL (7.8-10.44); Estimated GFR 11; Globulin 4.7 g/dL (2.4-3.5); Glucose 73 mg/dL (80-115); Protein, Total 8.9 g/dL (5.8-8.1)
[2022-07-03 12:08] LABS: Potassium 6.7 mmol/L (3.5-5.1)
[2022-07-03] MEDS ORDERED: Calcium Chloride 1 GM/10 ML Abboject SYRINGE ONE (12:34)
[2022-07-03] MEDS ORDERED: Albuterol Sulfate 2.5 mg/0.5 ml Neb ONE (12:34)
[2022-07-03] MEDS ORDERED: INSULIN REGULAR IN 0.9 % NACL 100 UNIT/100 ML BAG ONE (12:34)
[2022-07-03] MEDS ORDERED: Dextrose 50% Abboject 50 ML SYRINGE SLOW IVP SCH ×2 (13:00→13:15)
[2022-07-03 13:08] LABS: SARS-CoV-2 NAA Rapid Test Not Detected (NotDetected)
[2022-07-03] MEDS ORDERED: Insulin Regular 300 UNITS/3 ML VIAL ONE (13:08)
[2022-07-03] MEDS ORDERED: Heparin 10,000 UNITS/ 10 ML VIAL ONE (14:00)
[2022-07-03 15:50] LABS: CKMB 4.4 ng/mL (0-6.6)
[2022-07-03] MEDS ORDERED: hydrOXYzine 10 MG TAB PO PRN (17:43)
[2022-07-03] MEDS ORDERED: Albuterol Sulfate 2.5 mg/0.5 ml Neb NEB PRN (19:31)
[2022-07-03 19:48] LABS: CKMB 6.3 ng/mL (0-6.6)
[2022-07-03] MEDS: Heparin 5,000 UNITS/ML VIAL SC SCH (19:52)
[2022-07-03 22:53] LABS: Chloride 99 mmol/L (98-107); Potassium 4.6 mmol/L (3.5-5.1); Sodium 139 mmol/L (136-145)
[2022-07-03 22:54] LABS: Calcium 10.2 mg/dL (7.8-10.44)
[2022-07-03 22:56] LABS: Anion Gap 32 mmol/L (10-20); Carbon Dioxide 13 mmol/L (23-31)
[2022-07-03 22:58] LABS: BUN (Urea Nitrogen) 30 mg/dL (8.4-25.7); Calc. Creatinine Clearance 14 mL/min (70-130); Estimated GFR 23
[2022-07-03 23:00] LABS: Glucose 38 mg/dL (80-115)
[2022-07-03] MEDS ORDERED: Dextrose 50% Abboject 50 ML SYRINGE ONE (23:01)
[2022-07-04] MEDS ORDERED: Heparin 10,000 UNITS/ 10 ML VIAL ONE ×2 (04:11→14:40)
[2022-07-04] MEDS: Heparin 5,000 UNITS/ML VIAL SC SCH ×4 (04:37→22:45)
[2022-07-04 06:47] LABS: Hep B Core Total Ab Non-Reactive (NonReactive)
[2022-07-04 07:22] LABS: HBSAg Index 0.26 S/CO (0-0.99); Hep B Surf Ag Non-Reactive S/CO (NonReactive)
[2022-07-04 07:35] LABS: HBSAB Concentration 68.73 mIU/mL; Hep B Surf AB Reactive (NonReactive); Hep C IgG Ab Reflex HepC Qnt (NonReactive); Hep C Index 1.38 S/CO (0-0.79)
[2022-07-04 08:29] LABS: #Eosinphils 0.1 thou/uL (0.0-0.7); #Lymphocytes 0.3 thou/uL (1.20-3.40); #Monocytes 0.7 thou/uL (0.11-0.59); #Neutrophils 7.2 thou/uL (1.40-6.50); %Basophils 0.3 % (0.0-1.0); %Eosinophils 1.5 % (0.0-10.0); %Lymphocytes 3.5 % (21.0-51.0); %Monocytes 8.4 % (0.0-10.0); %Neutrophils 86.4 % (42.0-75.0); Hemoglobin 11.6 g/dL (14.0-18.0); Mean Corpuscular HGB CONC 31.6 g/dL (32.0-36.0); Mean Corpuscular Hemoglobin 32.3 pg (27.0-31.0); Mean Platelet Volume 6.6 fL (7.4-10.4); Platelet Count 344 10x3/uL (130-400); RBC Distribution Width 12.6 % (11.5-14.5); Red Blood Cell (RBC) Count 3.58 mill/uL (4.70-6.10); White Blood Cell (WBC) Count 8.4 10x3/uL (4.8-10.8)
[2022-07-04 08:47] LABS: ALT (SGPT) 10 U/L (8-55); AST (SGOT) 16 U/L (5-34); Albumin 3.7 g/dL (3.4-4.8); Alkaline Phosphatase 209 U/L (40-110); Anion Gap 20 mmol/L (10-20); BUN (Urea Nitrogen) 39 mg/dL (8.4-25.7); Bilirubin, Total 0.7 mg/dL (0.2-1.2); Calc. Creatinine Clearance 10 mL/min (70-130); Calcium 9.6 mg/dL (7.8-10.44); Carbon Dioxide 26 mmol/L (23-31); Chloride 94 mmol/L (98-107); Estimated GFR 15; Globulin 4.3 g/dL (2.4-3.5); Glucose 168 mg/dL (80-115); Potassium 4.9 mmol/L (3.5-5.1); Sodium 135 mmol/L (136-145)
[2022-07-04 08:48] LABS: Troponin I 0.052 ng/mL (< 0.028)
[2022-07-04] MEDS ORDERED: Aspirin 81 mg Enteric Coated Tablet PO SCH (09:00)
[2022-07-04] MEDS: Sevelamer Carbonate 800 MG TAB PO SCH ×2 (17:09→17:13)
[2022-07-04] MEDS: Fish Oil 1,000 MG CAP PO SCH (17:12)
[2022-07-04] MEDS: Atorvastatin Calcium 20 MG TAB PO SCH (17:13)
[2022-07-04] MEDS: Cholecalciferol 1,000 UNITS (25 MCG) TAB PO SCH (17:13)
[2022-07-04] MEDS: Lisinopril 2.5 MG TAB PO SCH (17:13)
[2022-07-05 04:44] LABS: #Eosinphils 0.2 thou/uL (0.0-0.7); #Lymphocytes 0.4 thou/uL (1.20-3.40); #Monocytes 0.9 thou/uL (0.11-0.59); #Neutrophils 5.6 thou/uL (1.40-6.50); %Basophils 0.6 % (0.0-1.0); %Eosinophils 2.9 % (0.0-10.0); %Lymphocytes 5.5 % (21.0-51.0); %Neutrophils 78.9 % (42.0-75.0); Hemoglobin 10.3 g/dL (14.0-18.0); Mean Corpuscular HGB CONC 31.7 g/dL (32.0-36.0); Mean Platelet Volume 6.6 fL (7.4-10.4); Platelet Count 269 10x3/uL (130-400); RBC Distribution Width 12.3 % (11.5-14.5); Red Blood Cell (RBC) Count 3.22 mill/uL (4.70-6.10); White Blood Cell (WBC) Count 7.1 10x3/uL (4.8-10.8)
[2022-07-05 05:14] LABS: ALT (SGPT) 11 U/L (8-55); AST (SGOT) 18 U/L (5-34); Albumin 3.5 g/dL (3.4-4.8); Alkaline Phosphatase 214 U/L (40-110); Anion Gap 16 mmol/L (10-20); BUN (Urea Nitrogen) 24 mg/dL (8.4-25.7); Bilirubin, Total 0.5 mg/dL (0.2-1.2); Calc. Creatinine Clearance 15 mL/min (70-130); Calcium 9.8 mg/dL (7.8-10.44); Carbon Dioxide 28 mmol/L (23-31); Chloride 99 mmol/L (98-107); Estimated GFR 21; Glucose 100 mg/dL (80-115); Potassium 3.9 mmol/L (3.5-5.1); Protein, Total 7.5 g/dL (5.8-8.1); Sodium 139 mmol/L (136-145)
[2022-07-05 08:12] VITALS: BP 121/57; TEMP 97.4
[2022-07-05 10:03] VITALS: BMI 17.0
[2022-07-05] MEDS ORDERED: Dextrose 5% in Water 1,000 ML IV PRN (10:45)
[2022-07-05] MEDS ORDERED: Dextrose 50% Abboject 50 ML SYRINGE IVP PRN (10:45)
[2022-07-05] MEDS ORDERED: Sodium Bicarb 50 MEQ/50 ML Abboject 8.4% SYRINGE ONE (10:59)
[2022-07-05] MEDS ORDERED: EPINEPHrine 1 MG/10 ML Abboject SYRINGE ONE (10:59)
[2022-07-05] MEDS ORDERED: Amiodarone 150 MG/3 ML VIAL ONE (10:59)
[2022-07-05] MEDS ORDERED: Magnesium 5 GM/10 ML Abboject SYRINGE ONE (10:59)
[2022-07-05] MEDS: Sevelamer Carbonate 800 MG TAB PO SCH (12:48)
[2022-07-05] MEDS: Atorvastatin Calcium 20 MG TAB PO SCH (12:48)
[2022-07-05] MEDS: Fish Oil 1,000 MG CAP PO SCH (12:48)
[2022-07-05] MEDS: Heparin 5,000 UNITS/ML VIAL SC SCH (12:48)
[2022-07-05] MEDS: Cholecalciferol 1,000 UNITS (25 MCG) TAB PO SCH (12:48)
[2022-07-05] MEDS: Lisinopril 2.5 MG TAB PO SCH (12:49)
[2022-07-05] MEDS ORDERED: Heparin 10,000 UNITS/ 10 ML VIAL ONE (14:37)
[2022-07-06 22:08] LABS: Hep C PCR-Quant HCV Not Detected IU/mL (.)
== END 2022-07-05 14:56 | disposition expired | DRG 640 ==
LOC: ERS 09:03 → ERHOLD 15:30 → 2NO 07-04 15:03
PROVIDERS: ADMIT Student in an Organized Health Care Education/Training Program; ATTEND Student in an Organized Health Care Education/Training Program
PROC: 5A1D70Z Performance of Urinary Filtration, Intermittent, Less than 6 Hours Per Day (ICD-10-PCS; principal; 2022-07-03)
PROC: 5A12012 Performance of Cardiac Output, Single, Manual (ICD-10-PCS; 2022-07-05)
PROC: 0BH17EZ Insertion of Endotracheal Airway into Trachea, Via Natural or Artificial Opening (ICD-10-PCS; 2022-07-05)
PROC: 5A1935Z Respiratory Ventilation, Less than 24 Consecutive Hours (ICD-10-PCS; 2022-07-05)
PROC: 3E033XZ Introduction of Vasopressor into Peripheral Vein, Percutaneous Approach (ICD-10-PCS; 2022-07-05)
DX: E87.70 Fluid overload, unspecified (principal); E43 Unspecified severe protein-calorie malnutrition; N18.6 End stage renal disease; I12.0 Hypertensive chronic kidney disease with stage 5 chronic kidney disease or end stage renal disease; R64 Cachexia; Z68.1 Body mass index [BMI] 19.9 or less, adult; Z20.822 Contact with and (suspected) exposure to COVID-19; E11.22 Type 2 diabetes mellitus with diabetic chronic kidney disease; E87.5 Hyperkalemia; B18.2 Chronic viral hepatitis C; I49.01 Ventricular fibrillation; I46.8 Cardiac arrest due to other underlying condition; Z88.0 Allergy status to penicillin; Z79.82 Long term (current) use of aspirin; Z79.51 Long term (current) use of inhaled steroids; Z79.899 Other long term (current) drug therapy; Z99.2 Dependence on renal dialysis; Z87.891 Personal history of nicotine dependence
CPT/HCPCS: 36415; 36416; 71045; 80053; 82553; 82805; 83880; 84484; 85025; 86704; 87522; 90935; 93005; 93010; 94760; 96374; 96375; G0257; J0171; J0282; J1644; J1815; J3475; J7611; J7999